=== PATIENT | male | born 1975 | race Caucasian/White ===

== ENCOUNTER → 2024-08-16 | Outpatient (CLI) | payer MEDICAID, SELFPAY ==
--- NOTE | 2024-08-16 16:00 | XR_ITS ---
Examination: Retroperitoneal ultrasound, complete Technique: Multiple high resolution grayscale images of the retroperitoneum obtained, including kidneys and bladder. Exam date and time:August 16, 2024 1603 hours INDICATIONS: Intermittent flank pain 1 year, history kidney stones FINDINGS: Right kidney 10.8 cm renal cortex 1.9 cm Left kidney 11.2 cm cortex 1.5 cm Moderate left hydronephrosis Moderate bilateral renal parenchymal scar formation Contracted urinary bladder, multiple bladder calculi, the largest 9 mm IMPRESSION: Moderate left hydronephrosis, consider CT scan abdomen and pelvis without intravenous contrast follow-up to exclude left ureteral calculi Multiple small bladder calculi
== END | disposition home or self-care (01) ==
PROVIDERS: PCP Physician Assistant; Referring Provider Physician Assistant; Visit Provider Physician Assistant
DX: N13.30 Unspecified hydronephrosis (principal); N21.0 Calculus in bladder
CPT/HCPCS: 76770

== ENCOUNTER → 2024-09-03 | Outpatient (CLI) | payer MEDICAID, SELFPAY ==
--- NOTE | 2024-09-03 15:37 | XR_ITS ---
Examination: Abdomen AP single view Technique: AP portable supine abdomen, single view Exam date and time: September 03, 2024 1341 hours INDICATIONS: History kidney stones left ureteral stent FINDINGS: Left ureteral stent satisfactory position Subtle calcifications adjacent to the upper portion of the stent More pronounced calcifications adjacent to the lower portion of the stent measuring up to 27 mm as well analysis 5 mm 7 mm distal left ureteral calculi IMPRESSION: Calcifications adjacent to the ureteral stent as above
== END | disposition home or self-care (01) ==
LOC: CDIM 15:17
PROVIDERS: PCP Physician Assistant; Referring Provider Physician Assistant; Visit Provider Physician Assistant
DX: N20.2 Calculus of kidney with calculus of ureter (principal)
CPT/HCPCS: 74018

== ENCOUNTER → 2024-09-05 | Outpatient (BNVA) | payer MEDICAID, SELFPAY | END | disposition home or self-care (01) | PROVIDERS: PCP Physician Assistant; Referring Provider Physician Assistant; Visit Provider Urology | DX: N40.1 Benign prostatic hyperplasia with lower urinary tract symptoms (principal); N13.8 Other obstructive and reflux uropathy; N28.89 Other specified disorders of kidney and ureter; N21.0 Calculus in bladder; I10 Essential (primary) hypertension | CPT/HCPCS: 81003; 99212; G0463 ==

== ENCOUNTER 2024-09-10 10:23 | Inpatient (IN) | payer MEDICAID, SELFPAY ==
[2024-09-10 10:27] VITALS: BP 126/88; PULSE 88; RESP 18; TEMP 36.9; O2SAT 100
[2024-09-10 10:33] VITALS: PULSE 88; O2SAT 98; BMI 25.3
[2024-09-10] MEDS: KETOROLAC INJ 30 MG/ML VIAL IM (10:52)
--- NOTE | 2024-09-10 11:14 | PD.EDSOB ---
ED SOB =RME/HPI General Chief Complaint: Abdominal Pain Stated Complaint: FLANK PAIN Time Seen by Provider: 09/10/24 11:09 Source: patient Arrival date/time: 09/10/24 10:23 Mode of arrival: ambulatory Limitations: no limitations RME / HPI RME / HPI Narrative: Patient is a 49-year-old male with a history of hypertension and ADD is here today with left-sided abdominal and flank pain. He has known urethral lithiasis and a urethral stent. He is followed by Dr. Holm with urology. He states he has a upcoming appointment for stent removal and laser surgery for his stones. He developed worsening pain today at 4 AM. He has nausea and vomiting. He has dysuria. Denies any fevers or chills. He has no other acute complaints. Related Data Previous Rx's ?Medication ?Instructions ?Recorded lisinopril 40 mg tablet 40 mg PO QDAY #30 tabs 01/11/22 Allergies Allergy/AdvReac Type Severity Reaction Status Date / Time No Known Allergies Allergy Verified 09/10/24 10:32 Review of Systems Review of Systems Systems Reviewed: All systems reviewed, normal except as documented ED Exam General Limitations: Present no limitations General appearance: Present alert and in distress Head Head exam: Present atraumatic Eye Eye exam: Present normal appearance, PERRL and EOMI ENT ENT exam: Present normal exam, normal oropharynx and mucous membranes moist Neck Neck exam: Present normal inspection, full ROM and trachea midline Chest Chest inspection: Present normal inspection and symmetric chest wall rise Respiratory Respiratory exam: Present normal lung sounds bilaterally Cardiovascular Cardiovascular exam: Present regular rate, normal rhythm and normal heart sounds Abdominal Exam Abdominal exam: Present soft, tenderness, guarding and rebound Extremities Exam Extremities exam: Present normal inspection and full ROM Back Exam Back exam: Present normal inspection, full ROM, CVA tenderness (R) and CVA tenderness (L) Neurological Exam Neurological exam: Present alert and oriented X3 Psychiatric Psychiatric exam: Present normal affect and normal mood Skin Skin exam: Present warm, dry, intact and normal color Course Course Course Narrative: Dr. Phillips with urology was contacted. Will admit to medicine and urology will follow. Quality Measures none Orders Category Date Time Status COVID-19 Screening Questionnaire NOW Care 09/10/24 12:40 Active Decision to Admit X1 Care 09/10/24 12:40 Active Insert IV NOW Care 09/10/24 10:45 Active Consult to Urology Stat Cons 09/10/24 12:[address] abdomen pelvis wo con Stat Exams 09/10/24 11:20 Completed CBC Stat Lab 09/10/24 10:54 Completed Comprehensive Metabolic Panel Stat Lab 09/10/24 10:54 Completed Lipase Stat Lab 09/10/24 10:54 Completed UA, C/S IF [Urinalysis, C/S if Indicated] Stat Lab 09/10/24 10:45 Ordered Ketorolac Inj [Toradol Inj] Med 09/10/24 10:44 Discontinued 30 mg IM X1 ONE Morphine Inj Med 09/10/24 10:45 Discontinued 4 mg IVP X1 ONE Ondansetron Inj [Zofran Inj] Med 09/10/24 10:45 Discontinued 4 mg IVP X1 ONE Sodium Chloride 0.9% 1000 ml [Ns] 1,000 ml Med 09/10/24 10:45 Discontinued IV 999 mls/hr Tamsulosin HCl [Flomax] Med 09/10/24 12:35 Discontinued 0.4 mg PO X1 ONE Vital Signs Vital signs: Vital Signs Temperature 98.4 F 09/10/24 10:27 Pulse Rate 88 09/10/24 10:27 Respiratory Rate 18 09/10/24 10:27 Blood Pressure 126/88 H 09/10/24 10:27 Pulse Oximetry (%) 100 09/10/24 10:27 Oxygen Delivery Method Room Air 09/10/24 10:27 Shortness of Breath / Dyspnea MDM Narrative MDM Narrative:: Patient is a 49-year-old male with a history of hypertension and ADD is here today with left-sided abdominal and flank pain. He has known urethral lithiasis and a urethral stent. He is followed by Dr. Holm with urology. He states he has a upcoming appointment for stent removal and laser surgery for his stones. He developed worsening pain today at 4 AM. He has nausea and vomiting. He has dysuria. Denies any fevers or chills. He has no other acute complaints. On exam, patient is in mild distress. He has abdominal tenderness. No CVA tenderness. Vital signs are stable. He has no leukocytosis or significant anemia. He has a mild CHICHI with a creatinine of 1.6. CT confirms patient has urethral lithiasis. Patient's urologist was contacted. Dr. Thao will follow the patient in the hospital. We will admit to medicine. Patient data External records reviewed:: None Clinical information provided by:: patient Social determinants that could affect healthcare access:: none Patient has the following chronic illnesses:: Nephrolithiasis How is presenting disease/condition affected by chronic disease/condition?: exacerbated by Evaluation data The following diagnostics were reviewed and interpreted by me:: lab results (Mild CHICHI, otherwise unremarkable) and radiology exam(s) (5 mm urethral stone) Lab and/or radiology exams considered but not ordered:: n/a Interpretation Summary: Ureteral lithiasis Medications / Prescriptions Medications or Prescriptions considered but not ordered:: n/a Medication administrations:: Medication Administration History Discontinued Medications Sodium Chloride (Ns) 1,000 mls @ 999 mls/hr IV .Q1H1M ONE Stop: 09/10/24 11:45 Last Admin: 09/10/24 11:33 Dose: 999 mls/hr Documented By: Ketorolac Tromethamine (Ketorolac Inj 30 Mg/Ml Vial) 30 mg IM X1 ONE Stop: 09/10/24 10:45 Last Admin: 09/10/24 10:52 Dose: 30 mg Documented By: Morphine Sulfate (Morphine Sulf Inj 10 Mg/Ml Vial) 4 mg IVP X1 ONE Stop: 09/10/24 10:46 Last Admin: 09/10/24 11:32 Dose: 4 mg Documented By: Ondansetron HCl (Ondansetron Inj 2 Mg/Ml Inj 2 Ml) 4 mg IVP X1 ONE; Protocol Stop: 09/10/24 10:46 Last Admin: 09/10/24 11:32 Dose: 4 mg Documented By: Tamsulosin HCl (Tamsulosin Hcl 0.4 Mg Capsule) 0.4 mg PO X1 ONE Stop: 09/10/24 12:36 See above Consultations Consultation(s) initiated? (list below): Yes Diagnosis Shortness of Breath Differential Diagnosis: other (Abdominal cramping, pyelonephritis, nephrolithiasis) Most likely diagnosis given after review of the tests above:: Ureterolithiasis Admission Indicated Admission indicated?: indicated Admission Request Was there a request for admission?: Yes Admission Attestation Admission request attestation: Discussed case with [] from Hospitalist service regarding admission. Discussed patients ED course, exam findings, labs, and radiology results. The Hospitalist [agrees,declines] to accept the patient for admission. Disposition Plan Disposition Plan: Admit Discharge Plan Plan Patient Disposition: Admit Acute Care w/in Hospital Prescriptions/Referrals Prescriptions/Med Rec: No Action lisinopril 40 mg tablet 40 mg PO QDAY Qty: 30 0RF Referrals: Renetta Redd PA-C [Primary Care Provider] - In 1 week Problem List Clinical Impression: Ureterolithiasis, CHICHI (acute kidney injury) Patient/Caregiver Discharge Instructions Print Language: Latvian Stand Alone Forms: Bel Award Info., Patient Portal Info Letter
--- NOTE | 2024-09-10 11:20 | XR_ITS ---
Examination: CT abdomen and pelvis without contrast. Coronal 3-D reconstructions. Sagittal 2-D reconstructions. Date and time of exam:September 10, 2024 1148 hours Comparison April 18, 2023 INDICATIONS: Left flank pain today, history left ureteral stent CTDI: vol (mGy): 7.70 DLP: (mGycm): 490 Technique: Axial images of the abdomen have been obtained, 3 mm slice thickness Intravenous contrast material has not been administered. Low dose protocols were performed. One or more of the following dose reduction techniques were used; automated exposure control, adjustment of the mA and/or KV according to patient size, use of iterative reconstruction technique. Findings: No focal liver or splenic lesion Absent gallbladder No pancreatic mass 10 mm fat-containing left adrenal nodule Moderate left hydronephrosis, stable compared with April 18, 2023, left ureteral stent satisfactory position 5 mm calculus adjacent to the distal left ureteral stent and multiple bladder calculi, the largest 18 mm No bowel obstruction Normal appendix IMPRESSION: Stable moderate left hydronephrosis Left ureteral stent satisfactory position with 5 mm calculus adjacent to the distal left ureteral stent Multiple bladder calculi
--- NOTE | 2024-09-10 11:26 | PC.NURSE ---
PATIENT ARRIVE ED VIA EMS WITH COMPLAINT OF LEFT SIDE ABDOMINAL PAIN. PATIENT STATES HE HAS SCHEDULED PROCEDURE FOR 09/11/24 FOR KIDNEY STONE 5MM. PATIENT STATES PAIN IS 10/10 ON PAIN SCALE AND HAS INCREASED SINCE THIS MORNING. IV ESTABLISHED. PAIN 10/10 INTERMITTENT. CALL LIGHT WITHIN REACH. WILL CONTINUE TO MONITOR.
[2024-09-10 11:31] LABS: Basophils # (Auto) 0.1 Thou/mm3 (0.0-0.2); Basophils % (Auto) 1 % (0-2.5); Eosinophils # (Auto) 0.5 Thou/mm3 (0.0-0.5); Eosinophils % (Auto) 6 % (0-10); Hematocrit 43.2 % (41.0-53.0); Hemoglobin 15.3 g/dL (13.5-16.0); Immature Granulocytes Auto 0.02 Thou/mm3 (0.00-0.00); Lymphocytes # (Auto) 3.3 Thou/mm3 (1.0-4.8); Lymphocytes % (Auto) 36 % (10-50); Mean Corpuscular HGB Conc 35.4 g/dl (31.0-37.0); Mean Corpuscular Hemoglobin 29.8 pg (25.0-35.0); Mean Corpuscular Volume 84 fL (80-100); Monocytes # (Auto) 1.1 Thou/mm3 (0.0-0.8); Monocytes % (Auto) 12 % (0-12); Neutrophils # (Auto) 4.2 Thou/mm3 (1.8-7.7); Neutrophils % (Auto) 46 % (37-80); Nucleated Red Blood Cell # 0.00 Thou/mm3 (0.00-0.00); Nucleated Red Blood Cell % 0 /100 WBC (0); Platelet Count 271 Thou/mm3 (140-440); RDW Standard Deviation 40.8 fL (35.1-43.9); Red Blood Count 5.13 Miln/mm3 (4.50-5.90); White Blood Count 9.2 Thou/mm3 (3.8-10.6)
[2024-09-10] MEDS: MORPHINE SULF INJ 10 MG/ML VIAL 4 MG IVP (11:32)
[2024-09-10] MEDS: ONDANSETRON INJ 2 MG/ML INJ 2 ML 4 MG IVP (11:32)
[2024-09-10] MEDS: SODIUM CHLORIDE 0.9% 1000 ML 1,000 ML 999 ML IV (11:33)
[2024-09-10 11:45] LABS: Alanine Aminotransferase 23 U/L (10-49); Albumin, Serum 4.1 gm/dL (3.5-5.0); Albumin/Globulin Ratio 1.7 (1.2-2.2); Alkaline Phosphatase 96 U/L (46-116); Anion Gap 10 (7-16); Aspartate Amino Transferase 17 U/L (0-34); BUN/Creatinine Ratio 11 Ratio (12-20); Bilirubin,Total 0.4 mg/dL (0.3-1.2); Blood Urea Nitrogen 17 mg/dL (9-23); Calcium 9.2 mg/dL (8.3-10.6); Calcium (Corrected) 9.2 mg/dL (8.5-10.1); Carbon Dioxide 26.7 mMol/L (20.0-31.0); Chloride 107 mMol/L (98-107); Creatinine (Component) 1.6 mg/dL (0.6-1.3); Estimated Creatinine Clearance 63.8 mL/min (>60); Globulin 2.4 gm/dL (2.3-3.5); Glucose 101 mg/dL (74-106); Lipase 46 U/L (12-53); Osmolality,Calculated 288 (275-295); Potassium 3.5 mMol/L (3.4-5.1); Sodium 144 mMol/L (136-145); Total Protein 6.5 gm/dL (5.7-8.2); eGFR 53 See Note
[2024-09-10 12:13] VITALS: BP 134/97; PULSE 80; RESP 18; TEMP 36.8; O2SAT 98
--- NOTE | 2024-09-10 14:23 | ESHP_ITS ---
<Statement entered by Joe Gallego MD - 09/10/24 18:33> Patient seen and examined at bedside, no acute overnight events. I discussed and supervised with the photography intern physician who took care of this patient. I personally saw and examined the patient. I agree with most of the assessment and plan. Patient with history of multiple renal calculi, recent UTI, and ureteral stent followed by Dr. Rao presents with left flank pain, nausea without vomiting. CT in ED showed mutiple bladder calculi, one ureter calculi. Dr. Rao consulted, will remove stent and possibly perform lithotripsy tomorrow. Patient on IVF, emperic Rocephin ordered, pending urine culture. PRN pain meds on board. Plan of care discussed with attending Dr. Myers. Joe Galelgo MD PGY-2 Documentation for date of: 09/10/24 HPI History of Present Illness History of present illness: Mr. Figueroa is a 49-year-old gentleman with a history of attention deficit disorder, left ureteral stone, and left hydronephrosis, HTN. Patient was initially followed by urologist named Dr. Brooks who had placed ureter stent in 2021 when he had ESWL performed. Due to difficulties with insurance patient was not followed by urology since 2021. Patient seen by urologist, Dr. Thao on 09/05 for evaluation of urinary frequency, urgency, and gross hematuria. Per Dr. Thao's note, pt was planned for a staged procedure with cysto, retrograde ureteroscopy, laser stone fragmentation, and possible removal of the stent. Patient presents to the emergency department with severe left flank pain that radiates to the left groin. States that at 4 AM today he started to experience intermittent sharp and pulsating pain in his left flank area, He states that he intermittently experiences rust colored urine when he plays with his kids or is more active than he normally is. He reports that his last bowel movement was yesterday. ROS * Patient endorses hot flashes, nausea, discomfort with urination, left flank pain, rust colored urine * Patient denies fever, chills, vomiting, constipation, diarrhea, chest pain, shortness of breath ED course Dx * CXR:Left ureteral stent satisfactory position, Subtle calcifications adjacent to the upper portion of the stent, More pronounced calcifications adjacent to the lower portion of the stent measuring up to 27 mm as well analysis 5 mm 7 mm distal left ureteral calculi * CTAP:Stable moderate left hydronephrosis, Left ureteral stent satisfactory position with 5 mm calculus adjacent to the distal left ureteral stent. Multiple bladder calculi Tx * Morphine 4 mg IV push one- time * Ketorolac 30 mg IV one-time * Zofran 4 mg IV push * 1 L normal saline Review of Systems Review of Systems Narrative Review of Systems: As per HPI Past Medical History Surgical History SURGICAL: Positive ESWL and Hx Cholecystectomy OTHER SURGICAL HX: Back surgery Social History SOCIAL: Never smoked History of THC use and methamphetamine use in 2021, patient reports taking medication for ADD Exam Vital Signs Temp Pulse Resp BP Pulse Ox O2 Del Method 98.2 F 80 18 134/97 H 98 Room Air 09/10/24 12:13 09/10/24 12:13 09/10/24 12:13 09/10/24 12:13 09/10/24 12:13 09/10/24 12:13 Narrative Exam GENERAL: uncomfortable and reporting pain , AAO x3, laying on his right side. HEENT: Head AT/ NC. Mucous membranes moist. PERRL. NECK: Supple, no lymphadenopathy, no carotid bruits. CARDIOVASCULAR: RRR. Normal S1/S2, No m/r/g. No pitting edema of bilateral LEs. RESPIRATORY: CTAB. No wheezing, rhonchi, crackles. GASTROINTESTINAL: Abdomen soft, non tender no palpable masses. Bowel sounds present, Left CVA tenderness to palpation MUSCULOSKELETAL:? No cyanosis or edema, no visible joint swelling. NEUROLOGICAL: CN II-XII grossly intact. No focal deficits. Sensation intact, symmetric. PSYCHIATRIC: Awake and alert, not agitated, normal mood and affect. SKIN: No obvious rashes, no jaundice, normal turgor. Results: Labs 09/13/24 04:48 09/13/24 04:48 Labs: Short CBC 09/10/24 Range/Units 10:54 WBC 9.2 (3.8-10.6) Thou/mm3 Hgb 15.3 (13.5-16.0) g/dL Hct 43.2 (41.0-53.0) % Plt Count 271 (140-440) Thou/mm3 BMP 09/10/24 10:54 Sodium 144 Potassium 3.5 Chloride 107 Carbon Dioxide 26.7 BUN 17 Creatinine 1.6 H Glucose 101 Calcium 9.2 Liver Function 09/10/24 Range/Units 10:54 Total Bilirubin 0.4 (0.3-1.2) mg/dL AST 17 (0-34) U/L ALT 23 (10-49) U/L Alkaline Phosphatase 96 (46-116) U/L Albumin 4.1 (3.5-5.0) gm/dL Quality Measures Quality Measures VTE prophylaxis Medications Home Medications and Allergies Allergies Allergy/AdvReac Type Severity Reaction Status Date / Time No Known Allergies Allergy Verified 09/10/24 10:32 Visit Medications Acetaminophen (Acetaminophen 325 Mg Tablet) 650 mg PO Q6H PRN PRN Reason: Fever >101.5 Stop: 10/10/24 13:32 Acetaminophen (Acetaminophen Supp 650 Mg Supp) 650 mg ND Q6H PRN PRN Reason: PAIN SCALE 1-3 (mild Stop: 10/10/24 13:32 Hydrocodone Bitart/Acetaminophen (Hydrocodone/Apap 10/325 Tab) 1 tab PO Q4H PRN PRN Reason: PAIN SCALE 4-6 (Moderate Stop: 09/15/24 13:32 Hydromorphone HCl (Hydromorphone Inj 2 Mg/Ml Vial) 1 mg IVP Q4HR PRN PRN Reason: pain scale 4-10 Stop: 09/15/24 14:19 Sodium Chloride (Ns) 1,000 mls @ 85 mls/hr IV .[id number] ANIKET Stop: 10/10/24 13:44 Ondansetron HCl (Ondansetron Inj 2 Mg/Ml Inj 2 Ml) 4 mg IVP Q6H PRN; Protocol PRN Reason: NAUSEA OR VOMITING Stop: 10/10/24 13:32 Tamsulosin HCl (Tamsulosin Hcl 0.4 Mg Capsule) 0.4 mg PO QDAY [facility] Stop: 10/11/24 08:59 Discontinued Medications Sodium Chloride (Ns) 1,000 mls @ 999 mls/hr IV .Q1H1M ONE Stop: 09/10/24 11:45 Last Admin: 09/10/24 11:33 Dose: 999 mls/hr Ketorolac Tromethamine (Ketorolac Inj 30 Mg/Ml Vial) 30 mg IM X1 ONE Stop: 09/10/24 10:45 Last Admin: 09/10/24 10:52 Dose: 30 mg Morphine Sulfate (Morphine Sulf Inj 10 Mg/Ml Vial) 4 mg IVP X1 ONE Stop: 09/10/24 10:46 Last Admin: 09/10/24 11:32 Dose: 4 mg Morphine Sulfate (Morphine Sulf Inj 10 Mg/Ml Vial) 1 mg IVP Q4H PRN PRN Reason: PAIN SCALE 7-10 (Severe Stop: 09/15/24 13:32 Ondansetron HCl (Ondansetron Inj 2 Mg/Ml Inj 2 Ml) 4 mg IVP X1 ONE; Protocol Stop: 09/10/24 10:46 Last Admin: 09/10/24 11:32 Dose: 4 mg Tamsulosin HCl (Tamsulosin Hcl 0.4 Mg Capsule) 0.4 mg PO X1 ONE Stop: 09/10/24 12:36 Assessment & Plan Plan Mr. Figueroa is a 49-year-old gentleman with a history of attention deficit disorder, left ureteral stone, and left hydronephrosis with L ureter stent 2021, seen by Dr. Thao outpatient on 09/05 with plan for staged cysto, retrograde uretoscopy, laser stone fragmentation, and possible removal of the stent 09/11. currently managing IV fluids and pain managment, NPO at midnight. #Left hydronephrosis #L ureter stent #L uretal stone #hx of ESWL -pt presents with severe L flank pain that radiates to the groin, fth L renal stone. given pt has hx of UTI, urine on admission is notable for RBC and leuk esterase, +, however there is some concern that uretal could be infected, therefore will prophylactically treat for possible infxn with abx. Dx -CTAP: uretal stent noted to be distal to L uretal stent, - KUB: calcifications around L uretal stent - UA: + LEUK ESTERASE + RBC -follow up urine culture Tx - CTX 1 gm - fluids NS 85 ml/hr - Pain mgmt: [place] and dilaudid (avoid nephrotoxic pain medications, d/c ED IV morpheine) #CHICHI Cr: 1.6, appears baseline is about 1.1 Ddx: Consider pre vs intra vs post renal etiologies favor prerenal, given poor PO intake Dx - BUN/Cr ratio: 11 , which is <20, so consider prerenal - Daily CMP Tx - Avoid nephrotoxic medications - Increased maintenance fluids to 90ml/hr LR #electrolyte abnormalities Dx -daily cmp, mg and phos Tx -replete as needed -K>4, Mg >2 Chronic #HTN pt does not endorse taking antihypertensives, BP intermittently elevated, consider elevation in BP given pain 2/2 uretal stone -CTM -manage pain regarding uretal stone appropriately #ADD pt reports ADD with medication management, -hold home amphetimine -utox + amphetemine. Dispo:home pending procedure with tomorrow. Diet: Regular diet, NPO at midnight Bowel Reg: not indicated VTE ppx: held given procedure tomorrow. GI ppx: not indicated Code status: FULL Case discussed with my senior resident Dr. Gallego Case discussed with my attending Dr. Lucia Brenner MD PGY-1 Attending Provider Attestation/Addendum I attest that I was physically present for the evaluation, physical examination, lab and imaging review of the patient with the residents. I discussed the case with the residents and agree with the findings and plans of care as documented above. After examination of the patient and review of the clinical data I feel that this patient needs admission to the hospital for further treatment/evaluation. Sergio Myers MD
[2024-09-10 14:35] VITALS: BP 145/88; PULSE 88; RESP 20; O2SAT 96
[2024-09-10] MEDS: SODIUM CHLORIDE 0.9% 1000 ML 1,000 ML 85 ML IV (15:09)
[2024-09-10] MEDS: TAMSULOSIN HCL 0.4 MG CAPSULE PO (15:09)
[2024-09-10 15:42] VITALS: BMI 25.4
[2024-09-10 16:00] VITALS: BP 140/103; PULSE 75; RESP 16; TEMP 36.3; O2SAT 97
[2024-09-10 19:44] LABS: Collection Type, Urine Clean Catch
[2024-09-10 19:51] LABS: Bilirubin,Urine Negative (Negative); Blood,Urine 3+ (Negative); Budding Yeast,Urine Present; Clarity,Urine Turbid (Clear/Hazy); Color,Urine Lt-Yellow (Lt Yel-Yel); Culture Indicated,Urine Yes; Glucose, Urine 1+ (Negative); Hyaline Casts,Urine < 1 /hpf (0-1); Ketones,Urine Negative (Negative); Leukocyte Esterase,Urine Positive (Negative); Nitrite,Urine Negative (Negative); PH,Urine 6.5 (5.0-7.0); Protein,Urine Trace (Neg - Trace); RBC,Urine 438 /hpf (0-3); Specific Gravity,Urine 1.018 (1.001-1.035); Squamous Epithelial Cell,Urine 1 /hpf (0-5); Urobilinogen,Urine Negative mg/dL (0.0-1.0); WBC,Urine 18 /hpf (0-5)
[2024-09-10] MEDS: cefTRIAXone/D5w 1gm IV premix 1 GM/50 ML BAG IV (19:54)
[2024-09-10 20:00] VITALS: BP 133/89; PULSE 78; RESP 18; TEMP 36.1; O2SAT 96
[2024-09-10 20:32] LABS: Amphetamine/Methamp Scrn,U Positive (Negative); Barbiturate Screen,Urine Negative (Negative); Benzodiazepines Screen,Urine Negative (Negative); Benzoylecgonine Screen, Ur Negative (Negative); Fentanyl Screen,Urine Negative (Negative); Opiate Screen,Urine Positive (Negative); THC Screen,Urine Negative (Negative)
--- NOTE | 2024-09-10 21:33 | PC.NURSE ---
Patient asleep, no s/s distress.
[2024-09-11] VITALS (12 sets, daily range): BP systolic 122–151; BP diastolic 82–105; PULSE 69–77; RESP 12–20; TEMP 36.1–36.4; O2SAT 93–100
[2024-09-11] MEDS: SODIUM CHLORIDE 0.9% 1000 ML 1,000 ML 85 ML IV (05:06)
[2024-09-11 06:12] LABS: Basophils # (Auto) 0.0 Thou/mm3 (0.0-0.2); Basophils % (Auto) 1 % (0-2.5); Eosinophils # (Auto) 0.6 Thou/mm3 (0.0-0.5); Eosinophils % (Auto) 11 % (0-10); Hematocrit 40.6 % (41.0-53.0); Hemoglobin 13.9 g/dL (13.5-16.0); Immature Granulocytes Auto 0.01 Thou/mm3 (0.00-0.00); Lymphocytes # (Auto) 2.2 Thou/mm3 (1.0-4.8); Lymphocytes % (Auto) 37 % (10-50); Mean Corpuscular HGB Conc 34.2 g/dl (31.0-37.0); Mean Corpuscular Hemoglobin 29.7 pg (25.0-35.0); Mean Corpuscular Volume 87 fL (80-100); Monocytes # (Auto) 0.7 Thou/mm3 (0.0-0.8); Monocytes % (Auto) 11 % (0-12); Neutrophils # (Auto) 2.5 Thou/mm3 (1.8-7.7); Neutrophils % (Auto) 41 % (37-80); Nucleated Red Blood Cell # 0.00 Thou/mm3 (0.00-0.00); Nucleated Red Blood Cell % 0 /100 WBC (0); Platelet Count 217 Thou/mm3 (140-440); RDW Standard Deviation 42.1 fL (35.1-43.9); Red Blood Count 4.68 Miln/mm3 (4.50-5.90); White Blood Count 6.0 Thou/mm3 (3.8-10.6)
[2024-09-11 06:24] LABS: INR 1.0 (0.9-1.3); Partial Thromboplastin Time 26.5 Seconds (22.0-36.0); Prothrombin Time 10.9 Seconds (9.0-12.2)
[2024-09-11 06:26] LABS: Alanine Aminotransferase 54 U/L (10-49); Albumin, Serum 3.5 gm/dL (3.5-5.0); Albumin/Globulin Ratio 1.7 (1.2-2.2); Alkaline Phosphatase 88 U/L (46-116); Anion Gap 7 (7-16); Aspartate Amino Transferase 39 U/L (0-34); BUN/Creatinine Ratio 8 Ratio (12-20); Bilirubin,Total 0.4 mg/dL (0.3-1.2); Blood Urea Nitrogen 10 mg/dL (9-23); Calcium 8.1 mg/dL (8.3-10.6); Calcium (Corrected) 8.5 mg/dL (8.5-10.1); Carbon Dioxide 29.9 mMol/L (20.0-31.0); Cardiac Risk Estimate 5.8 RATIO (4.0-6.7); Chloride 106 mMol/L (98-107); Cholesterol 173 mg/dL (132-200); Creatinine (Component) 1.3 mg/dL (0.6-1.3); Estimated Creatinine Clearance 76.3 mL/min (>60); Globulin 2.1 gm/dL (2.3-3.5); Glucose 97 mg/dL (74-106); HDL Cholesterol 30 mg/dL (40-60); LDL Cholesterol,Calculated 70 mg/dL (0-130); Magnesium 1.5 mg/dL (1.6-2.6); Osmolality,Calculated 283 (275-295); Phosphorous 3.1 mg/dL (2.4-5.1); Potassium 3.7 mMol/L (3.4-5.1); Sodium 143 mMol/L (136-145); Total Protein 5.6 gm/dL (5.7-8.2); Triglycerides 364 mg/dL (30-150); eGFR > 60 See Note
--- NOTE | 2024-09-11 07:40 | ESPR_ITS ---
<Statement entered by Joe Gallego MD - 09/11/24 20:28> Patient seen and examined at bedside, no acute overnight events. I discussed and supervised with the security intern physician who took care of this patient. I personally saw and examined the patient. I agree with most of the assessment and plan. Patient received lithotripsy performed by Dr. Rao today, attempted to remove ureter stent, however was unable to due to calcifications. Patient will need to follow up outpatient for next part of procedure. Urine culture pending, continuing rocephin. Plan of care discussed with attending Dr. Myers. Joe Gallego MD PGY-2 Documentation for date of: 09/11/24 Subjective Subjective Interval history: No acute events overnight, patient is comfortable with adequate pain control Plan for procedure with urologist this afternoon Patient n.p.o. Exam Vital Signs Temp Pulse Resp BP Pulse Ox O2 Del Method 97.0 F 73 16 136/93 H 96 Room Air 09/11/24 04:00 09/11/24 04:00 09/11/24 04:00 09/11/24 04:00 09/11/24 04:00 09/11/24 04:00 Narrative Exam GENERAL: Resting comfortably in bed, AAO x3, laying on his right side. HEENT: Head AT/ NC. Mucous membranes moist. PERRL. NECK: Supple, no lymphadenopathy, no carotid bruits. CARDIOVASCULAR: RRR. Normal S1/S2, No m/r/g. No pitting edema of bilateral LEs. RESPIRATORY: CTAB. No wheezing, rhonchi, crackles. GASTROINTESTINAL: Abdomen soft, non tender no palpable masses. Bowel sounds present, mild left CVA tenderness to palpation MUSCULOSKELETAL:? No cyanosis or edema, no visible joint swelling. NEUROLOGICAL: CN II-XII grossly intact. No focal deficits. Sensation intact, symmetric. PSYCHIATRIC: Awake and alert, not agitated, normal mood and affect. SKIN: No obvious rashes, no jaundice, normal turgor. Objective Labs 09/13/24 04:48 09/13/24 04:48 Labs: Laboratory Results - last 24 hr 09/10/24 09/10/24 09/10/24 10:54 19:28 19:30 WBC 9.2 RBC 5.13 Hgb 15.3 Hct 43.2 MCV 84 MCH 29.8 MCHC 35.4 RDW Std Deviation 40.8 Plt Count 271 Neut % (Auto) 46 Lymph % (Auto) 36 Bryan % (Auto) 12 Eos % (Auto) 6 Baso % (Auto) 1 Neut # (Auto) 4.2 Lymph # (Auto) 3.3 Bryan # (Auto) 1.1 H Eos # (Auto) 0.5 Baso # (Auto) 0.1 Immature Gran # (Auto) 0.02 H Absolute Nucleated RBC 0.00 Immature Gran % 0 Nucleated RBC % 0 PT INR APTT Sodium 144 Potassium 3.5 Chloride 107 Carbon Dioxide 26.7 Anion Gap 10 BUN 17 Creatinine 1.6 H Estim Creat Clear Calc 63.8 eGFR 53 L BUN/Creatinine Ratio 11 L Glucose 101 Calculated Osmolality 288 Calcium 9.2 Corrected Calcium 9.2 Phosphorus Magnesium Total Bilirubin 0.4 AST 17 ALT 23 Alkaline Phosphatase 96 Total Protein 6.5 Albumin 4.1 Globulin 2.4 Albumin/Globulin Ratio 1.7 Triglycerides Cholesterol LDL Cholesterol, Calc HDL Cholesterol Cholesterol/HDL Ratio Lipase 46 Ur Collection Type Clean Catch Urine Color Lt-Yellow Urine Clarity Turbid A Urine pH 6.5 Ur Specific Hernandez 1.018 Urine Protein Trace Urine Glucose (UA) 1+ A Urine Ketones Negative Urine Blood 3+ A Urine Nitrite Negative Urine Bilirubin Negative Urine Urobilinogen (Auto) Negative Ur Leukocyte Esterase Positive Urine RBC 438 H Urine WBC 18 H Ur Squamous Epith Cells 1 Urine Bacteria None Hyaline Casts < 1 Urine Yeast (Budding) Present A Ur Culture Indicated? Yes Urine Opiates Screen Positive A Urine Fentanyl Screen Negative Ur Barbiturates Screen Negative U Amphetamin/Meth Scrn Positive A U Benzodiazepines Scrn Negative U Cocaine Metab Screen Negative U Marijuana (THC) Screen Negative 09/11/24 04:58 WBC 6.0 RBC 4.68 Hgb 13.9 Hct 40.6 L MCV 87 MCH 29.7 MCHC 34.2 RDW Std Deviation 42.1 Plt Count 217 D Neut % (Auto) 41 Lymph % (Auto) 37 Bryan % (Auto) 11 Eos % (Auto) 11 H Baso % (Auto) 1 Neut # (Auto) 2.5 Lymph # (Auto) 2.2 Bryan # (Auto) 0.7 Eos # (Auto) 0.6 H Baso # (Auto) 0.0 Immature Gran # (Auto) 0.01 H Absolute Nucleated RBC 0.00 Immature Gran % 0 Nucleated RBC % 0 PT 10.9 INR 1.0 APTT 26.5 Sodium 143 Potassium 3.7 Chloride 106 Carbon Dioxide 29.9 Anion Gap 7 BUN 10 Creatinine 1.3 Estim Creat Clear Calc 76.3 eGFR > 60 BUN/Creatinine Ratio 8 L Glucose 97 Calculated Osmolality 283 Calcium 8.1 L Corrected Calcium 8.5 Phosphorus 3.1 Magnesium 1.5 L Total Bilirubin 0.4 AST 39 H ALT 54 H Alkaline Phosphatase 88 Total Protein 5.6 L Albumin 3.5 D Globulin 2.1 L Albumin/Globulin Ratio 1.7 Triglycerides 364 H Cholesterol 173 LDL Cholesterol, Calc 70 HDL Cholesterol 30 L Cholesterol/HDL Ratio 5.8 Lipase Ur Collection Type Urine Color Urine Clarity Urine pH Ur Specific Hernandez Urine Protein Urine Glucose (UA) Urine Ketones Urine Blood Urine Nitrite Urine Bilirubin Urine Urobilinogen (Auto) Ur Leukocyte Esterase Urine RBC Urine WBC Ur Squamous Epith Cells Urine Bacteria Hyaline Casts Urine Yeast (Budding) Ur Culture Indicated? Urine Opiates Screen Urine Fentanyl Screen Ur Barbiturates Screen U Amphetamin/Meth Scrn U Benzodiazepines Scrn U Cocaine Metab Screen U Marijuana (THC) Screen Quality Measures Quality Measures VTE prophylaxis Assessment & Plan Assessment Current Active Medications: Generic Name Dose Route Start Last Admin Trade Name Freq PRN Reason Stop Dose Admin Acetaminophen 650 mg 09/10/24 13:33 Acetaminophen 325 Mg Tablet PO 10/10/24 13:32 Q6H PRN Fever >101.5 Acetaminophen 650 mg 09/10/24 13:33 Acetaminophen Supp 650 Mg Supp AZ 10/10/24 13:32 Q6H PRN PAIN SCALE 1-3 (mild Hydrocodone Bitart/Acetaminophen 1 tab 09/10/24 13:33 09/10/24 18:05 Hydrocodone/Apap 10/325 Tab PO 09/15/24 13:32 1 tab Q4H PRN Administration PAIN SCALE 4-6 (Moderate Hydromorphone HCl 1 mg 09/10/24 14:20 Hydromorphone Inj 2 Mg/Ml Vial IVP 09/15/24 14:19 Q4HR PRN PAIN SCALE 7-10 (Severe Sodium Chloride 1,000 mls @ 85 mls/hr 09/10/24 13:45 09/11/24 05:06 Ns IV 10/10/24 13:44 85 mls/hr .[id number] ANIKET Administration Ceftriaxone Sodium/Dextrose 1 gm in 50 mls @ 100 mls/hr 09/10/24 20:00 09/10/24 19:54 Rocephin/D5w 1gm Iv Premix IV 09/17/24 19:59 100 mls/hr QDAY@1400 ANIKET Administration Ondansetron HCl 4 mg 09/10/24 13:33 Ondansetron Inj 2 Mg/Ml Inj 2 Ml IVP 10/10/24 13:32 Q6H PRN NAUSEA OR VOMITING Protocol Tamsulosin HCl 0.4 mg 09/11/24 09:00 Tamsulosin Hcl 0.4 Mg Capsule PO 10/11/24 08:59 QDAY ANIKET Plan Mr. Figueroa is a 49-year-old gentleman with a history of attention deficit disorder, left ureteral stone, and left hydronephrosis with L ureter stent 2021, seen by Dr. Thao outpatient on 09/05 with s/p part 1 of staged cysto, retrograde uretoscopy, laser stone fragmentation, left ureteral stent not rib removed, per op note Dr. Eduardo plans to remove stent in 2 to 3 weeks in office Thornton catheter 5 days given stricture, #Left hydronephrosis #L ureter stent #L uretal stone #hx of ESWL -pt presents with severe L flank pain that radiates to the groin, fth L renal stone. given pt has hx of UTI, urine on admission is notable for RBC and leuk esterase, +, however there is some concern that uretal could be infected, therefore will prophylactically treat for possible infxn with abx. Dx -CTAP: uretal stent noted to be distal to L uretal stent, - KUB: calcifications around L uretal stent - UA: + LEUK ESTERASE + RBC -follow up urine culture Tx - CTX 1 gm - fluids NS 85 ml/hr -Status post procedure with urology, plan for staged procedure in [address] Thao. Left ureteral stent will be exchanged in office, plan to continue Thornton catheter for 5 days given stricture of the fossa navicularis - Pain mgmt per surgeon, jadon fofana dilaudid #CHICHI- resolving Cr: 1.6 on admission, appears baseline is about 1.1, now 1.3 Ddx: Consider pre vs intra vs post renal etiologies favor prerenal, given poor PO intake and resolution with fluids Dx - BUN/Cr ratio: 11 , which is <20, so consider prerenal - Daily CMP Tx - Avoid nephrotoxic medications - encourage PO intake #electrolyte abnormalities Dx -daily cmp, mg and phos Tx -replete as needed -K>4, Mg >2 Chronic #HTN pt does not endorse taking antihypertensives, BP intermittently elevated, consider elevation in BP given pain 2/2 uretal stone -CTM -manage pain regarding uretal stone appropriately #ADD pt reports ADD with medication management, -hold home amphetimine -utox + amphetemine. #High Triglycerides ASCVD score does not indicate statin is needed (risk 4.3%) - consider outpt follow up for elevated triglycerides -encourage healthy diet Dispo:s/p procedure with dr. Eduardo, plan for outpatient stent removal, thornton 5 days for stricture. Diet: Regular diet, Bowel Reg: senna prn, given opioid pain regimen VTE ppx: Resume heparin tomorrow GI ppx: not indicated Code status: FULL Case discussed with my senior resident Dr. Gallego Case discussed with my attending Dr. Lucia Brenner MD PGY-1 Attending Provider Attestation/Addendum I attest that I was physically present for the evaluation, physical examination, lab and imaging review of the patient with the residents. I discussed the case with the residents and agree with the findings and plans of care as documented above. Sergio Myers MD
[2024-09-11] MEDS: TAMSULOSIN HCL 0.4 MG CAPSULE PO (08:42)
[2024-09-11] MEDS: HYDROmorphone INJ 2 MG/ML VIAL 1 MG IVP ×2 (08:48→23:31)
--- NOTE | 2024-09-11 10:08 | PC.SS ---
Patient Ace Figueroa is a 49 Year old male admitted for PRE REG. SS met with patient at bedside to discuss discharge plan and verify demographic information. Patient reports he lives at home with his life partner, Vida Young. Patient reports his mother, Andreina Stover is his surrogate decision maker, [phone]. Patient reports he is able to complete all ADL's independently. Patient does not utilize any source of DME to assist with ambulation. Pharmacy of choice is [facility]. PCP is Renetta Arellano. At time of discharge patient will return back home, family will provide transportation. Next of kin: mother, Andreina Stover [phone]. Discharge plan: Home
[2024-09-11] MEDS: POTASSIUM CHL 10 mEq IVPB 10 MEQ/100 ML BAG 100 MEQ IV ×3 (10:10→12:14)
[2024-09-11] MEDS: Magnesium Sulfate 4 GM Ivpb 4 GM/50 ML BAG IV (10:10)
--- NOTE | 2024-09-11 11:15 | XR_ITS ---
Examination: Retrograde pyelogram, left with without KUB Fluoroscopy 7 spot fluoroscopic abdomen films INDICATIONS: History flank pain, moderate left hydronephrosis left ureteral stent in satisfactory position with 5 mm calculus adjacent to the distal left ureter on CT stone study September 10, 2024,. Date and time: September 11, 2024 1417 hours TECHNIQUE AND FINDINGS: 7 spot fluoroscopic films of the abdomen Minimal opacification of the left calyces Fluoroscopy 108 seconds radiation dose 28.75 mg IMPRESSION: Retrograde pyelogram as above
[2024-09-11] MEDS: CALCIUM GLUC/NS 1000MG IVPB 1,000 MG/50 ML BAG 50 MG IV (12:23)
--- NOTE | 2024-09-11 14:39 | PC.SS ---
SS follow up note; Urine cultures pending, pending Dr. Thao consult. Patient will discharge home when medically cleared.
--- NOTE | 2024-09-11 16:55 | SUR.PHASEI ---
[id number] Patient arrived to recovery resting comfortably in [facility], on oxygen 6L via oxy mask with an oral airway in place, breathing unlabored, vital signs stable, urinary catheter 20F in place with leg secure; draining to gravity, report received from Dr. Ayon and Lindsey BEVERLY
--- NOTE | 2024-09-11 17:07 | ESOP_ITS ---
Date of Procedure 09/11/24 Pre Op Diagnosis Calcified stent left ureter BPH with urinary obstruction, encrustation of the distal end of the stent, bladder stone, of stricture of fossa navicularis Post Op Diagnosis Same Procedure Cystoscopic examination urethral dilation laser stone fragmentation of bladder stones left retrograde pyelogram left ureteroscopy laser stone fragmentation left ureter ,placement of left ureteral stent insertion of Trujillo catheter Findings Stricture of fossa navicularis, obstructive prostate gland, bladder stone, calcified stent left ureter stone in the left ureter Procedure Description This is a 49-year-old gentleman who was seen by me in urology office. This patient has been seen by another urologist before who placed a left ureteral stent in 2021 and the stent was not removed now he has calcified stent and bladder stones from the stent and bladder stone he was having recurrent urinary tract infection at the nominal pain he had a CAT scan of the abdomen done this revealed multiple stones in the bladder calcified left ureteral stent he was recommended recommended cystoscopic examination laser stone fragmentation of the bladder stones, left ureteroscopy laser stone fragmentation of left ureteral stones retrograde pyelogram removal of the left ureteral stent and placement of another ureteral stent. Procedure procedure and complications were discussed with the patient in great detail I had also explained to the patient if I am unable to remove his calcified stent since it has been there for the last 3 years I may have to insert another stent alongside the previous stent if I am unable to remove his previous stent and I also explained to him there is a possibility he may have to have a placement of the percutaneous nephrostomy and informed consent was obtained Patient was brought to the operating room in a satisfactory condition after appropriate premedication was put on the operating table in a supine position he was appropriately identified by surgeon and operating room staff site scope and indications of the procedure were reconfirmed with the patient. Next general anesthesia was given uneventfully patient was positioned in a dorsal lithotomy position parts were prepped and draped in the usual sterile fashion 2% lidocaine was instilled into the urethra 21 Sandoval cystoscope was used to do the cystourethroscopy. At this time patient received perioperative antibiotics and 20 mg of Lasix IV was given for prevention of pyelocalyceal reflux infectious complications and for diuresis. cystoscopic examination revealed that he has a stricture of fossa navicularis. Dilation with male urethral sounds up to 28 Ukrainian was carried out next I was able to insert the scope into the bladder , other than stricture of fossa navicularis he had no urethral stricture identified. Examination of the prostatic urethra revealed bilobar prostatic hypertrophy. Inside of the bladder and all the quadrant was carried out he had multiple bladder stones and the distal end of the stent was calcified with the largest stone encasing it. The stent was calcified up to the left ureteral orifice. Next I used a 1000 ?m laser fiber to break the stones and remove the encrusted casing of the distal end of the ureteral stent. The stone in the bladder were very hard I used laser laser fiber to break the bladder stone and for remaining stone I had to use ,stone crushing forceps to crush some of the stones. Next with the [employer] evacuator I remove the stones. Next I focused my attention to the left ureteral orifice and left ureteral stone and calcified stent left ureter I passed a open-ended Pollick catheter into the left ureteral orifice it will not go beyond the distal third of the ureter even the contrast medium will not go beyond the obstructive stone. I did a retrograde pyelogram there was a obstruction . After manipulation of the open-ended Pollick , I was able to pass a safety wire into the upper pole calyx. I tried to advance the open-ended Pollick catheter I was unable to advance it. I used semirigid ureteroscope there was encrustation of the ureter and there was a obstruction in the distal ureter with a very large stone embedded into the tissue. I was able to break the stone with the 200 ?m laser fiber in the distal ureter to make enough space for me to put another stent. Next I passed the ureteroscope along with the stent it was calcified all the way to the proximal ureter it was not possible to remove the stent as it could have caused damage to the ureter. At this time I remove the ureteroscope over the safety wire I was able to place another 5 Ukrainian 28 cm ureteral stent proximal end curled into the upper pole calyx distal end in the bladder. The whole procedure was performed under fluoroscopic examination stones from the bladder were removed with the [employer] evacuator next instrument was withdrawn gently #20 Ukrainian Trujillo catheter was inserted into the bladder balloon was inflated with 10 cc of water patient after having tolerated the procedure well was sent to recovery room in a satisfactory condition he will be transferred to the floor. Patient is going to need second stage procedure hopefully by this time his ureter will be passively dilated and I may be pass the ureteroscope and remove the calcification around the whole ureter and replace it with another stent which will be there for 2 to 3 weeks then I will remove the ureteral stent in the office in the meantime patient needs to continue with the Trujillo catheter for 5 days because of the stricture of the fossa navicularis Anesthesia GETA Pathology / specimen Other (Bladder stone) Estimated Blood Loss 5 Condition Stable Disposition PACU Surgeon Dixon Thao MD Surgical Staff Operation Date: 09/11/24 11:45 Case Staff Anesthesiologist: Linwood Khan Anesthesiologist: Star Ayon
--- NOTE | 2024-09-11 17:57 | SUR.PHASEI ---
1746 Report given to Debra BEVERLY, patient meets discharge criteria from recovery, awake and alert, breathing unlabored, vital signs stable, denies pain, eating ice chips; denies nausea, urinary catheter in place with leg secure; draining to gravity 1757 Patient transported via gurney to room 359 without incident, patient awaiting for patient in his room, DIRECTOR OF [facility] CARE [facility]OS[facility] promptly in patients room and assisted this automotive service writer with transferring patinet from rney to bed, patient resting comfortably in bed with call light in reach when this automotive service writer left patients room
--- NOTE | 2024-09-11 18:44 | ESCONSULT_ITS ---
RE: ALBERTO LICONA : 1975 DATE OF CONSULTATION: 09/10/2024 CHIEF COMPLAINT: 1. Abdominal pain. 2. History of recurrent UTI. 3. Calcified stent in the left ureter by another urologist in 2021. The patient has no fever, chills, gross hematuria. He had nausea, vomiting, and dysuria. In the past he has history of recurrent UTI. REVIEW OF SYSTEMS: All systems were reviewed, normal except as documented. PHYSICAL EXAMINATION: General: Condition is satisfactory. Orientation x3. HEENT: Normocephalic and atraumatic. Eyes, no anemia or jaundice. Neck: Supple. Trachea is central. Thyroid is not enlarged. Extremities: Reveal no edema, cyanosis or clubbing. Vital Signs: Stable. They are in HPI, in EMR. Chest: Symmetrical. Heart: Regular rate and rhythm. Abdomen: Obese. No masses. Liver, spleen, kidney not palpable. No CVA tenderness. COMORBID CONDITIONS: 1. Hypertension. 2. ADD. He had a CAT scan of the abdomen and pelvis done. This revealed stone in the bladder calcified stent left ureter. Vital signs are stable. PLAN: 1. Cystoscopy, laser stone fragmentation of the bladder stones. 2. Ureteroscopy, laser stone fragmentation of the ureteral stone. 3. Possible removal of the left ureteral stent and possible placement of another ureteral stent. 4. Possibility of placement of percutaneous nephrostomy if I am unable to place the stent. All above issues were discussed with the patient in great detail. Questions were answered to his satisfaction. He verbalized understanding. DT: 17:27:59 TT: 18:43:00 Ref: [id number] - TID: [id number]
[2024-09-12] VITALS (7 sets, daily range): BP systolic 136–151; BP diastolic 87–99; PULSE 73–100; RESP 17–20; TEMP 36.1–36.3; O2SAT 94–98
[2024-09-12] MEDS: HYDROmorphone INJ 2 MG/ML VIAL 1 MG IVP ×2 (05:08→08:59)
[2024-09-12] MEDS: SODIUM CHLORIDE 0.9% 1000 ML 1,000 ML 85 ML IV (05:23)
--- NOTE | 2024-09-12 05:45 | PC.NURSE ---
Notified Dr. Flor and Dr. Pearson regarding patient's urninary cath. Night nurse notified MD that the urine is not flowing correctly into the bag and there is also some blood in the urine. Also, notified MD, that there is also some blood in the outside of the urinary cath. Night nurse asked MD if they could come out and come see patient.
[2024-09-12 06:37] LABS: Basophils # (Auto) 0.0 Thou/mm3 (0.0-0.2); Basophils % (Auto) 0 % (0-2.5); Eosinophils # (Auto) 0.0 Thou/mm3 (0.0-0.5); Eosinophils % (Auto) 0 % (0-10); Hematocrit 46.0 % (41.0-53.0); Hemoglobin 15.8 g/dL (13.5-16.0); Immature Granulocytes Auto 0.09 Thou/mm3 (0.00-0.00); Lymphocytes # (Auto) 0.9 Thou/mm3 (1.0-4.8); Lymphocytes % (Auto) 5 % (10-50); Mean Corpuscular HGB Conc 34.3 g/dl (31.0-37.0); Mean Corpuscular Hemoglobin 29.8 pg (25.0-35.0); Mean Corpuscular Volume 87 fL (80-100); Monocytes # (Auto) 0.4 Thou/mm3 (0.0-0.8); Monocytes % (Auto) 2 % (0-12); Neutrophils # (Auto) 17.1 Thou/mm3 (1.8-7.7); Neutrophils % (Auto) 93 % (37-80); Nucleated Red Blood Cell # 0.00 Thou/mm3 (0.00-0.00); Nucleated Red Blood Cell % 0 /100 WBC (0); Platelet Count 287 Thou/mm3 (140-440); RDW Standard Deviation 40.9 fL (35.1-43.9); Red Blood Count 5.30 Miln/mm3 (4.50-5.90); White Blood Count 18.5 Thou/mm3 (3.8-10.6)
[2024-09-12 06:56] LABS: Alanine Aminotransferase 50 U/L (10-49); Albumin, Serum 4.1 gm/dL (3.5-5.0); Albumin/Globulin Ratio 1.6 (1.2-2.2); Alkaline Phosphatase 96 U/L (46-116); Anion Gap 9 (7-16); Aspartate Amino Transferase 26 U/L (0-34); BUN/Creatinine Ratio 9 Ratio (12-20); Bilirubin,Total 0.5 mg/dL (0.3-1.2); Blood Urea Nitrogen 13 mg/dL (9-23); Calcium 9.0 mg/dL (8.3-10.6); Calcium (Corrected) 9.0 mg/dL (8.5-10.1); Carbon Dioxide 28.0 mMol/L (20.0-31.0); Chloride 104 mMol/L (98-107); Creatinine (Component) 1.4 mg/dL (0.6-1.3); Estimated Creatinine Clearance 70.8 mL/min (>60); Globulin 2.5 gm/dL (2.3-3.5); Glucose 164 mg/dL (74-106); Magnesium 1.5 mg/dL (1.6-2.6); Osmolality,Calculated 285 (275-295); Phosphorous 2.3 mg/dL (2.4-5.1); Potassium 4.2 mMol/L (3.4-5.1); Sodium 141 mMol/L (136-145); Total Protein 6.6 gm/dL (5.7-8.2); eGFR > 60 See Note
--- NOTE | 2024-09-12 07:56 | ESPR_ITS ---
<Statement entered by Toni Brown MD - 09/12/24 18:45> Patient was seen and examined at bedside. Patient's Thornton catheter was draining urine indicating mild straw-colored. Urologist recommended to keep Thornton for total 7 days. Stone was broken down with lithotripsy. New stent was placed. Old stent will be replaced as outpatient. Will likely discharge the patient tomorrow. Urine cultures are coming negative however wound cover patient with Levaquin due to complicated cystitis and stone. I discussed and supervised with the hospital internship physician who took care of this patient. I personally saw and examined the patient. I agree with most of the assessment and plan. Disclaimer: Despite multiple revisions, due to the dictation software being used, the document bellow may not be free of grammatical errors including phonetic/typographic errors. However, this does not deter from our commitment to providing health care in the patient's best interest in mind. Plan of care discussed with attending Physician Dr. Melly Brown MD PGY-3 Documentation for date of: 09/12/24 Subjective Subjective Interval history: No acute events overnight, pain is well controlled. restarted diet after urology procedure, tolerating well thornton in place draining claudette aid colored urine Exam Vital Signs Temp Pulse Resp BP Pulse Ox O2 Del Method O2 Flow Rate 97.3 F 90 17 136/90 H 94 L Room Air 3 09/12/24 04:00 09/12/24 04:00 09/12/24 04:00 09/12/24 04:00 09/12/24 04:00 09/12/24 04:00 09/11/24 17:10 24 hr vital signs have been reviewed. afebrile, satting well on RA BP stable Narrative Exam GENERAL: no acute distress, AAO x3, comfortably laying in bed HEENT: Head AT/ NC. Mucous membranes moist. PERRL. NECK: Supple, no lymphadenopathy, no carotid bruits. CARDIOVASCULAR: RRR. Normal S1/S2, No m/r/g. No pitting edema of bilateral LEs. RESPIRATORY: CTAB. No wheezing, rhonchi, crackles. GASTROINTESTINAL: Abdomen soft, non tender no palpable masses. Bowel sounds present : thornton in place, with claudette aid colored urine MUSCULOSKELETAL:? No cyanosis or edema, no visible joint swelling. NEUROLOGICAL: CN II-XII grossly intact. No focal deficits. Sensation intact, symmetric.pt seen ambulating in room PSYCHIATRIC: Awake and alert, not agitated, normal mood and affect. SKIN: No obvious rashes, no jaundice, normal turgor. Objective Labs 09/13/24 04:48 09/13/24 04:48 Labs: Laboratory Results - last 24 hr 09/12/24 05:53 WBC 18.5 H D RBC 5.30 Hgb 15.8 Hct 46.0 MCV 87 MCH 29.8 MCHC 34.3 RDW Std Deviation 40.9 Plt Count 287 D Neut % (Auto) 93 H Lymph % (Auto) 5 L [place] % (Auto) 2 Eos % (Auto) 0 Baso % (Auto) 0 Neut # (Auto) 17.1 H Lymph # (Auto) 0.9 L [place] # (Auto) 0.4 Eos # (Auto) 0.0 Baso # (Auto) 0.0 Immature Gran # (Auto) 0.09 H Absolute Nucleated RBC 0.00 Immature Gran % 1 H Nucleated RBC % 0 Sodium 141 Potassium 4.2 D Chloride 104 Carbon Dioxide 28.0 Anion Gap 9 BUN 13 Creatinine 1.4 H Estim Creat Clear Calc 70.8 eGFR > 60 BUN/Creatinine Ratio 9 L Glucose 164 H D Calculated Osmolality 285 Calcium 9.0 Corrected Calcium 9.0 Phosphorus 2.3 L Magnesium 1.5 L Total Bilirubin 0.5 AST 26 ALT 50 H Alkaline Phosphatase 96 Total Protein 6.6 Albumin 4.1 D Globulin 2.5 Albumin/Globulin Ratio 1.6 Quality Measures Quality Measures VTE prophylaxis Assessment & Plan Assessment Current Active Medications: Generic Name Dose Route Start Last Admin Trade Name Chanoq PRN Reason Stop Dose Admin Acetaminophen 650 mg 09/10/24 13:33 Acetaminophen 325 Mg Tablet PO 10/10/24 13:32 Q6H PRN Fever >101.5 Acetaminophen 650 mg 09/10/24 13:33 Acetaminophen Supp 650 Mg Supp CO 10/10/24 13:32 Q6H PRN PAIN SCALE 1-3 (mild Hydrocodone Bitart/Acetaminophen 1 tab 09/10/24 13:33 09/10/24 18:05 Hydrocodone/Apap 10/325 Tab PO 09/15/24 13:32 1 tab Q4H PRN Administration PAIN SCALE 4-6 (Moderate Hydromorphone HCl 1 mg 09/10/24 14:20 09/12/24 05:08 Hydromorphone Inj 2 Mg/Ml Vial IVP 09/15/24 14:19 1 mg Q4HR PRN Administration PAIN SCALE 7-10 (Severe Sodium Chloride 1,000 mls @ 85 mls/hr 09/10/24 13:45 09/12/24 05:23 Ns IV 10/10/24 13:44 85 mls/hr .[id number] ANIKET Administration Ceftriaxone Sodium/Dextrose 1 gm in 50 mls @ 100 mls/hr 09/10/24 20:00 09/11/24 16:33 Rocephin/D5w 1gm Iv Premix IV 09/17/24 19:59 Not Given QDAY@1400 ANIKET Lisinopril 40 mg 09/12/24 09:00 Lisinopril 20 Mg Tablet PO 10/12/24 08:59 QDAY ANIKET Ondansetron HCl 4 mg 09/10/24 13:33 Ondansetron Inj 2 Mg/Ml Inj 2 Ml IVP 10/10/24 13:32 Q6H PRN NAUSEA OR VOMITING Protocol Tamsulosin HCl 0.4 mg 09/11/24 09:00 09/11/24 08:42 Tamsulosin Hcl 0.4 Mg Capsule PO 10/11/24 08:59 0.4 mg QDAY ANIKET Administration Plan Mr. Figueroa is a 49-year-old gentleman with a history of attention deficit disorder, left ureteral stone, and left hydronephrosis with L ureter stent 2021, seen by Dr. Thao outpatient on 09/05 with s/p part 1 of staged cysto, retrograde uretoscopy, laser stone fragmentation, left ureteral stent not be removed, per op note Dr. Eduardo plans to remove stent in 2 to 3 weeks in office Thornton catheter 7 days given stricture #Leukocytosis 2/2 #Left hydronephrosis #L ureter stent #L uretal stone #hx of ESWL -pt presents with severe L flank pain that radiates to the groin, fth L renal stone. given pt has hx of UTI, urine on admission is notable for RBC and leuk esterase, +, however there is some concern that uretal could be infected, therefore will prophylactically treat for possible infxn with abx. Dx -CTAP: uretal stent noted to be distal to L uretal stent, - KUB: calcifications around L uretal stent - UA: + LEUK ESTERASE + RBC -UCx negative Tx - CTX 1 gm, plan to discharge with 7 days of Levoflox 750 mg - fluids LR 125ml/hr -Status post procedure with urology, plan for staged procedure in [address] Thao. Left ureteral stent will be exchanged in office, plan to continue Thornton catheter for 7 days given stricture of the fossa navicularis - Pain mgmt orals: oxycodone 5 mg q6h prn, NORCO q6h #CHICHI- resolving Cr: 1.6 on admission, appears baseline is about 1.1, now 1.3 Ddx: Consider pre vs intra vs post renal etiologies favor prerenal, given poor PO intake and resolution with fluids Dx - BUN/Cr ratio: 11 , which is <20, so consider prerenal - Daily CMP Tx - Avoid nephrotoxic medications - encourage PO intake #electrolyte abnormalities Dx -daily cmp, mg and phos Tx -replete as needed -K>4, Mg >2 Chronic #HTN pt does not endorse taking antihypertensives, BP intermittently elevated, consider elevation in BP given pain 2/2 uretal stone -CTM -manage pain 2/2 urology procedure #ADD pt reports ADD with medication management, -hold home amphetimine -utox + amphetemine. #High Triglycerides ASCVD score does not indicate statin is needed (risk 4.3%) - consider outpt follow up for elevated triglycerides -encourage healthy diet Dispo:s/p procedure with dr. Eduardo, plan for outpatient stent removal, thornton 7 days for stricture, pt education on thornton removal Diet: Regular diet, Bowel Reg: senna prn, given opioid pain regimen VTE ppx: not indicated, pt ambulatory GI ppx: not indicated Code status: FULL Case discussed with my senior resident Dr. Gallego Case discussed with my attending Dr. Lucia Brenner MD PGY-1 Attending Provider Attestation/Addendum I, Prema Pickard DO, attest that I was physically present for the [place] portions of the service and evaluated the patient with the resident and I reviewed and discussed the case with the resident and agree with the resident's findings and plans of care as documented above Patient seen and eval this a.m. Patient states he has minimal pain at this time to site besides discomfort of the Thornton catheter. Urine is a copper red color. Patient is able to ambulate without issue otherwise. Case discussed with urology who states that the patient had an old calcified ureteral stent that had been blocking the left ureter requiring laser to break up stones and passed with guidewire to place new stent. Patient also had a very large stone in bladder. Procedure was quite difficult. Patient will need a second procedure in the near future for removal of stent. Patient also found to have a stricture and will need to keep his Thornton catheter in for 7 days. Nursing at bedside can teach patient how to remove Thornton catheter at home. Patient's WBCs are 18.5 today and likely reactive. He is otherwise afebrile. Will continue with Flomax at this time and antibiotics for prophylactic coverage. Will continue with IV fluids and monitor overnight. Anticipate discharge within the next 24 hours if patient remains afebrile.
--- NOTE | 2024-09-12 07:57 | PD.RESDS ---
Planned Discharge Date 09/12/24 DS: Providers Provider Date of admission: 09/10/24 13:33 Primary care physician: Renetta Redd PA-C Admitting Provider: Sergio Myers MD Attending Provider on Admission: Sergio Myers MD Consults: 09/10/24 12:37 Consult to Urology Stat Comment: Urethral lithiasis Consulting Provider: Dixon Thao Attending Provider on DC: RESIDENT Fidelia Discharging Provider: RESIDENT Fidelia Hospital Course Hospital Course Hospital course: No acute events overnight, patient is comfortable with adequate pain control Plan for procedure with urologist this afternoon Patient n.p.o. Time Spent with Patient Time attestation: Total time spent providing and/or coordinating discharge services: Exam Vital Signs Temp Pulse Resp BP Pulse Ox O2 Del Method O2 Flow Rate 97.3 F 90 17 136/90 H 94 L Room Air 3 09/12/24 04:00 09/12/24 04:00 09/12/24 04:00 09/12/24 04:00 09/12/24 04:00 09/12/24 04:00 09/11/24 17:10 Discharge Plan Prescriptions/Referrals Prescriptions/Med Rec: No Action lisinopril 40 mg tablet 40 mg PO QDAY Qty: 30 0RF Referrals: Renetta Redd PA-C [Primary Care Provider] - Patient/Caregiver Discharge Instructions Print Language: Slovak
[2024-09-12] MEDS: TAMSULOSIN HCL 0.4 MG CAPSULE PO (08:30)
[2024-09-12] MEDS: NAPH,KPH MBDB 1 PACKET (1.5 GM) PO (08:30)
[2024-09-12] MEDS: RINGERS LACTATED 1000 ML 500 ML 125 ML IV (08:31)
[2024-09-12] MEDS: Magnesium Sulfate 4 GM Ivpb 4 GM/50 ML BAG IV (08:32)
[2024-09-12] MEDS: cefTRIAXone/D5w 1gm IV premix 1 GM/50 ML BAG IV (10:47)
[2024-09-13] VITALS: BP 152/93; PULSE 76; RESP 17; TEMP 36.7; O2SAT 100
[2024-09-13 04:00] VITALS: BP 144/93; PULSE 64; RESP 18; TEMP 36.4; O2SAT 98
[2024-09-13] MEDS: oxyCODONE HCL 5 MG IR TAB PO (04:21)
[2024-09-13 06:32] LABS: Basophils # (Auto) 0.0 Thou/mm3 (0.0-0.2); Basophils % (Auto) 0 % (0-2.5); Eosinophils # (Auto) 0.1 Thou/mm3 (0.0-0.5); Eosinophils % (Auto) 0 % (0-10); Hematocrit 44.0 % (41.0-53.0); Hemoglobin 15.3 g/dL (13.5-16.0); Immature Granulocytes Auto 0.08 Thou/mm3 (0.00-0.00); Lymphocytes # (Auto) 2.4 Thou/mm3 (1.0-4.8); Lymphocytes % (Auto) 13 % (10-50); Mean Corpuscular HGB Conc 34.8 g/dl (31.0-37.0); Mean Corpuscular Hemoglobin 30.0 pg (25.0-35.0); Mean Corpuscular Volume 86 fL (80-100); Monocytes # (Auto) 1.3 Thou/mm3 (0.0-0.8); Monocytes % (Auto) 7 % (0-12); Neutrophils # (Auto) 14.6 Thou/mm3 (1.8-7.7); Neutrophils % (Auto) 79 % (37-80); Nucleated Red Blood Cell # 0.00 Thou/mm3 (0.00-0.00); Nucleated Red Blood Cell % 0 /100 WBC (0); Platelet Count 244 Thou/mm3 (140-440); RDW Standard Deviation 42.0 fL (35.1-43.9); Red Blood Count 5.10 Miln/mm3 (4.50-5.90); White Blood Count 18.5 Thou/mm3 (3.8-10.6)
[2024-09-13 07:01] LABS: Alanine Aminotransferase 48 U/L (10-49); Albumin, Serum 4.4 gm/dL (3.5-5.0); Albumin/Globulin Ratio 2.2 (1.2-2.2); Alkaline Phosphatase 96 U/L (46-116); Anion Gap 6 (7-16); Aspartate Amino Transferase 30 U/L (0-34); BUN/Creatinine Ratio 12 Ratio (12-20); Bilirubin,Total 0.3 mg/dL (0.3-1.2); Blood Urea Nitrogen 15 mg/dL (9-23); Calcium 9.3 mg/dL (8.3-10.6); Calcium (Corrected) 9.3 mg/dL (8.5-10.1); Carbon Dioxide 30.8 mMol/L (20.0-31.0); Chloride 106 mMol/L (98-107); Creatinine (Component) 1.3 mg/dL (0.6-1.3); Estimated Creatinine Clearance 76.3 mL/min (>60); Globulin 2.0 gm/dL (2.3-3.5); Glucose 116 mg/dL (74-106); Magnesium 2.2 mg/dL (1.6-2.6); Osmolality,Calculated 286 (275-295); Phosphorous 3.0 mg/dL (2.4-5.1); Potassium 3.9 mMol/L (3.4-5.1); Sodium 143 mMol/L (136-145); Total Protein 6.4 gm/dL (5.7-8.2); eGFR > 60 See Note
[2024-09-13 07:42] VITALS: BP 152/104; BP 153/103; PULSE 69; RESP 18; TEMP 36.4; O2SAT 98
--- NOTE | 2024-09-13 07:47 | PD.RESPRO ---
Documentation for date of: 09/13/24 Exam Vital Signs Temp Pulse Resp BP Pulse Ox O2 Del Method O2 Flow Rate 97.5 F 69 18 153/103 H 98 Room Air 3 09/13/24 07:42 09/13/24 07:42 09/13/24 07:42 09/13/24 07:42 09/13/24 07:42 09/13/24 07:42 09/11/24 17:10 Objective Labs 09/13/24 04:48 09/13/24 04:48 Labs: Laboratory Results - last 24 hr 09/13/24 04:48 WBC 18.5 H RBC 5.10 Hgb 15.3 Hct 44.0 MCV 86 MCH 30.0 MCHC 34.8 RDW Std Deviation 42.0 Plt Count 244 D Neut % (Auto) 79 Lymph % (Auto) 13 [place] % (Auto) 7 Eos % (Auto) 0 Baso % (Auto) 0 Neut # (Auto) 14.6 H Lymph # (Auto) 2.4 [place] # (Auto) 1.3 H Eos # (Auto) 0.1 Baso # (Auto) 0.0 Immature Gran # (Auto) 0.08 H Absolute Nucleated RBC 0.00 Immature Gran % 0 Nucleated RBC % 0 Sodium 143 Potassium 3.9 Chloride 106 Carbon Dioxide 30.8 Anion Gap 6 L BUN 15 Creatinine 1.3 Estim Creat Clear Calc 76.3 eGFR > 60 BUN/Creatinine Ratio 12 Glucose 116 H Calculated Osmolality 286 Calcium 9.3 Corrected Calcium 9.3 Phosphorus 3.0 Magnesium 2.2 Total Bilirubin 0.3 AST 30 ALT 48 Alkaline Phosphatase 96 Total Protein 6.4 Albumin 4.4 Globulin 2.0 L Albumin/Globulin Ratio 2.2 Quality Measures Quality Measures VTE prophylaxis Assessment & Plan Assessment Current Active Medications: Generic Name Dose Route Start Last Admin Trade Name Freq PRN Reason Stop Dose Admin Acetaminophen 650 mg 09/10/24 13:33 Acetaminophen 325 Mg Tablet PO 10/10/24 13:32 Q6H PRN Fever >101.5 Acetaminophen 650 mg 09/10/24 13:33 Acetaminophen Supp 650 Mg Supp SD 10/10/24 13:32 Q6H PRN PAIN SCALE 1-3 (mild Hydrocodone Bitart/Acetaminophen 1 tab 09/10/24 13:33 09/13/24 00:23 Hydrocodone/Apap 10/325 Tab PO 09/15/24 13:32 1 tab Q4H PRN Administration PAIN SCALE 4-6 (Moderate Hydromorphone HCl 2 mg 09/13/24 07:47 Hydromorphone Hcl 2 Mg Tablet PO 09/13/24 07:48 X1 ONE Ceftriaxone Sodium/Dextrose 1 gm in 50 mls @ 100 mls/hr 09/12/24 09:00 09/12/24 10:47 Rocephin/D5w 1gm Iv Premix IV 09/19/24 08:59 100 mls/hr DAILY ANIKET Administration Levofloxacin 750 mg 09/13/24 09:00 Levofloxacin 250 Mg Tablet PO 09/20/24 08:59 QDAY ANIKET Lisinopril 40 mg 09/12/24 09:00 09/12/24 08:30 Lisinopril 20 Mg Tablet PO 10/12/24 08:59 40 mg QDAY ANIKET Administration Ondansetron HCl 4 mg 09/10/24 13:33 Ondansetron Inj 2 Mg/Ml Inj 2 Ml IVP 10/10/24 13:32 Q6H PRN NAUSEA OR VOMITING Protocol Oxycodone HCl 5 mg 09/12/24 10:45 09/13/24 04:21 Oxycodone Hcl 5 Mg Ir Tab PO 09/17/24 10:38 5 mg Q6HR PRN Administration PAIN SCALE 4-10(Mod-Sev Tamsulosin HCl 0.4 mg 09/11/24 09:00 09/12/24 08:30 Tamsulosin Hcl 0.4 Mg Capsule PO 10/11/24 08:59 0.4 mg QDAY ANIKET Administration
[2024-09-13] MEDS: HYDROMORPHONE HCL 2 MG TABLET PO (07:57)
[2024-09-13 08:37] VITALS: BP 153/103; PULSE 69
[2024-09-13] MEDS: cefTRIAXone/D5w 1gm IV premix 1 GM/50 ML BAG IV (08:37)
[2024-09-13] MEDS: LEVOFLOXACIN 250 MG TABLET 750 MG PO (08:37)
[2024-09-13] MEDS: TAMSULOSIN HCL 0.4 MG CAPSULE PO (08:38)
--- NOTE | 2024-09-13 11:56 | ESDS_ITS ---
<Statement entered by Prema Pickard DO - 09/14/24 08:53> I, Prema Pickard DO, attest that I was physically present for the [place]mlinson portions of the service and evaluated the patient with the resident and I reviewed and discussed the case with the resident and agree with the resident's findings and plans of care as documented above <Statement entered by Toni Brown MD - 09/13/24 16:39> I discussed and supervised with the advisory internship physician who took care of this patient. I personally saw and examined the patient. I agree with most of the assessment and plan. Disclaimer: Despite multiple revisions, due to the dictation software being used, the document bellow may not be free of grammatical errors including phonetic/typographic errors. However, this does not deter from our commitment to providing health care in the patient's best interest in mind. Plan of care discussed with attending Physician Dr. Melly Brown MD PGY-3 Planned Discharge Date 09/13/24 DS: Providers Provider Date of admission: 09/10/24 13:33 Primary care physician: Renetta Redd PA-C Admitting Provider: Sergio Myers MD Attending Provider on Admission: Prema Pickard DO Consults: 09/10/24 12:37 Consult to Urology Stat Comment: Urethral lithiasis Consulting Provider: Dixon Thao Attending Provider on DC: Prema Pickard DO Discharging Provider: Prema Pickard DO DS: Diagnosis Problem List Completed Was Problem List Reviewed/Reconciled?: Yes Hospital Course Hospital Course Hospital course: Hospital Course Mr. Figueroa is a 49-year-old man with a history of attention deficit disorder, left ureteral stone, and left hydronephrosis with L ureter stent 2021, seen by Dr. Thao outpatient on 09/05 with s/p part 1 of staged cysto, retrograde uretoscopy, laser stone fragmentation, left ureteral stent not removed. He has Thornton catheter in place due to stricture in the penile urethra found on surgery. Patient will continue with Thornton for 7 days prior to removing. Patient was noted to have leukocytosis following procedure, but has been afebrile. Suspect reactive leukocytosis. Patient will be discharged on antibiotics prophylactically for UTI given presence of renal stones and ureteral stones. While inpatient we managed his pain with IV Dilaudid, Tylenol, and oxycodone. Patient was transition from any IV medications to p.o. medications for pain management. Patient stable and medically cleared for discharge Diagnoses #Left hydronephrosis #Nephrolithiasis #L ureter stent #L uretal stone post lithotripsy #urethral stricture #Leukocytosis, likely reactive #hx of ESWL -HTN ? ADD - Elevated triglycerides Discharge instructions Take levaquin 750 once a day for 6 days to complete course of UTI Take Tyelnol for pain as needed YOu are being sent with 10 tabs of [place] 5, take as needed for pain, max 4 pills in one day Take all home meds as prescribed F/U with PCP and urologist as outpatient within a week Patient will leave with thornton cathetar needs to keep in for 5 more days In case of emergency call 911 or come back to the ED Case discussed with my senior resident Dr. Brown Case discussed with my attending Dr. Melly Brenner MD PGY-1 Status at Discharge Functional status at discharge: independent ambulation Overall status at discharge: patient is progressing back to baseline Time Spent with Patient Time attestation: Total time spent providing and/or coordinating discharge services: Time spent: Greater than 30 minutes Exam Vital Signs Temp Pulse Resp BP Pulse Ox O2 Del Method O2 Flow Rate 97.5 F 69 18 153/103 H 98 Room Air 3 09/13/24 07:42 09/13/24 08:37 09/13/24 07:42 09/13/24 08:37 09/13/24 07:42 09/13/24 07:42 09/11/24 17:10 Narrative Exam GENERAL: Resting comfortably in bed (patient had just received some pain medication), AAO x3, laying on his right side. HEENT: Head AT/ NC. Mucous membranes moist. PERRL. NECK: Supple, no lymphadenopathy, no carotid bruits. CARDIOVASCULAR: RRR. Normal S1/S2, No m/r/g. No pitting edema of bilateral LEs. RESPIRATORY: CTAB. No wheezing, rhonchi, crackles. GASTROINTESTINAL: Abdomen soft, non tender no palpable masses. Bowel sounds present, mild : Thornton in place draining Librado-Aid colored urine MUSCULOSKELETAL:? No cyanosis or edema, no visible joint swelling. NEUROLOGICAL: CN II-XII grossly intact. No focal deficits. Sensation intact, symmetric. PSYCHIATRIC: Awake and alert, not agitated, normal mood and affect. SKIN: No obvious rashes, no jaundice, normal turgor. Discharge Plan Plan Patient Disposition: HOME (Self Care) Care Plan Goals: Take levaquin 750 once a day for 6 days to complete course of UTI Take Tyelnol for pain as needed You are being sent with 10 tabs of [place] 5, take as needed for pain, max 4 pills in one day Take all home meds as prescribed Follow up with Primary doctor and urologist as outpatient within a week Patient will leave with thornton catheter needs to keep in for 5 more days In case of emergency call 911 or come back to the ED Prescriptions/Referrals Prescriptions/Med Rec: New tamsulosin 0.4 mg Capsule 0.4 mg PO QDAY Qty: 90 0RF levofloxacin 750 mg tablet 750 mg PO QDAY 6 Days Qty: 6 0RF hydrocodone-acetaminophen 5-325 mg tablet 1 tab PO Q6H MDD 4 PRN (Reason: pain) Qty: 10 0RF Continued lisinopril 40 mg tablet 40 mg PO QDAY Qty: 30 0RF Referrals: Renetta Redd PA-C [Primary Care Provider] - Dixon Thao MD [Physician] - Patient/Caregiver Discharge Instructions Education Materials: Medicine for Pain, Discharge Instructions Caring ..., ED Thornton Catheter, Care Print Language: Luxembourgish Stand Alone Forms: Bel Award Info., Patient Portal Info Letter Discharge Order Discharge Orders: Discharge (Routine); Ordered 09/13/24 Ordered By: Joe Gallego Quality Discharge Quality Measures VTE prophylaxis
[2024-09-13 12:00] VITALS: BP 139/95; BP 145/93; PULSE 77; RESP 18; TEMP 36.2; O2SAT 98
[2024-09-19 23:34] LABS: Stone Analysis Source URINARY BLADDER
[2024-09-20 06:26] LABS: Stone Analysis Weight 3.065 g
== END 2024-09-13 13:38 | disposition home or self-care (01) | DRG 465 ==
LOC: SERX 12:56 → SERHOLD 13:59 → S3NX 15:38
PROVIDERS: Nurse Practitioner Primary Care; Urology; Admitting Provider Student in an Organized Health Care Education/Training Program; Emergency Provider Emergency Medicine; PCP Physician Assistant; Visit Provider Internal Medicine
PROC: 0TJB8ZZ Inspection of Bladder, Via Natural or Artificial Opening Endoscopic (ICD-10-PCS; CPT 52000; principal; 2024-09-11 11:30)
DX: N13.2 Hydronephrosis with renal and ureteral calculous obstruction (principal); Z87.442 Personal history of urinary calculi; I10 Essential (primary) hypertension; Z90.49 Acquired absence of other specified parts of digestive tract; Z87.440 Personal history of urinary (tract) infections; N17.9 Acute kidney failure, unspecified; N13.8 Other obstructive and reflux uropathy; N40.1 Benign prostatic hyperplasia with lower urinary tract symptoms; N21.0 Calculus in bladder; E78.1 Pure hyperglyceridemia; N35.919 Unspecified urethral stricture, male, unspecified site
CPT/HCPCS: 36415; 74176; 74420; 80053; 80061; 80307; 81001; 82365; 83690; 83735; 84100; 85025; 85610; 85730; 87086; 96361; 96372; 96374; A4217; A4649; C1769; C1876; C1889; C1894; J0131; J0613; J0696; J1100; J1171; J1580; J1885; J1938; J2250; J2270; J2405; J2704; J3010; J3475; J3480; J3490; J7030; J7120; A9270

== ENCOUNTER 2024-09-13 23:57 | Emergency (ER) | payer MEDICAID, SELFPAY ==
[2024-09-13 23:58] VITALS: BMI 25.3
[2024-09-14 00:16] VITALS: BP 149/97; PULSE 111; RESP 18; TEMP 36.1; O2SAT 97; BMI 25.3
--- NOTE | 2024-09-14 01:07 | XR_ITS ---
Examination: CT abdomen and pelvis without contrast. Coronal 3-D reconstructions. Sagittal 2-D reconstructions. Date and time of exam:September 14, 2024 at 0209 hours INDICATIONS: Severe flank pain after stent placement today, history left hydronephrosis left ureteral stent placement with 5 mm calculus adjacent to the distal left ureteral stent on CT stone study September 10, 2024 CTDI: vol (mGy): 8.35 DLP: (mGycm): 531 Technique: Axial images of the abdomen have been obtained, 3 mm slice thickness Intravenous contrast material has not been administered. Low dose protocols were performed. One or more of the following dose reduction techniques were used; automated exposure control, adjustment of the mA and/or KV according to patient size, use of iterative reconstruction technique. Findings: No pancreatic or adrenal mass Significant improvement in hydronephrosis on the left compared to the September 10, 2024 study Left ureteral stent in satisfactory position with multiple left ureteral calculi adjacent to the distal portion of the stent Urinary [place] catheter and contracted urinary bladder, subcentimeter bladder calculi Normal appendix 10 mm left adrenal nodule Moderate disc narrowing L5-S1 Trace free fluid in the pelvis Impression : Current left ureteral stent satisfactory position with no significant current hydronephrosis 5 mm, 5 mm calculi adjacent to the lower portion of the left ureteral stent. Subcentimeter bladder calculi
--- NOTE | 2024-09-14 03:11 | PRELIM_ITS ---
CT scan of the abdomen and pelvis without intravenous contrast (axial sections with sagittal and coronal reformats). 3D reconstructed images were also provided. September 14, 2024 0209 hours Clinical History: Monitor ureteral stent position Comparison: CT abdomen and pelvis study dated September 10, 2024. Findings: There is interval placement of a left nephroureteral stent with its proximal end in the upper pole calyx and the distal end in the urinary bladder. Again noted is an old left nephroureteral stent catheter with its proximal end in the lower pole calyx and the distal end in the urinary bladder, stable in position. Tiny air loculi are seen in the upper pole calyx of the left kidney, likely due to recent intervention. There is interval decrease of left hydronephrosis. Minimal left periureteric/perinephric fat stranding is seen. No evidence of perinephric fluid collection. Again noted are calcifications/calculi in the left ureter, without significant interval change. No evidence of renal calculus. The gallbladder is surgically absent. Again noted is a 1 cm nodule (HU 5) in the left adrenal gland, without significant interval change and may represent an adenoma. The liver, pancreas, spleen, right kidney and right adrenal are unremarkable on this noncontrast study. No evidence of bowel obstruction. The appendix is within normal limits. There are multiple colonic diverticula without evidence of diverticulitis. No evidence of abdominal aortic aneurysm. There are subcentimeter mesenteric and retroperitoneal lymph nodes. A [place] catheter is seen in the empty urinary bladder, limiting the evaluation. A few tiny calculi are seen in the urinary bladder. There is interval removal of large calcific encrustations around the old left nephroureteral stent in the bladder. Trace free fluid is seen in the pelvis, of indeterminate etiology. There is no free air. Small bilateral inguinal hernias are seen containing fat without incarceration. Degenerative changes are identified in the spine. Bibasilar streaky atelectasis is present. Other findings are grossly stable since prior examination. Please note that evaluation of soft tissue/vascular structures and bowel loops is limited due to absence of IV and oral contrast. Impression: 1. Interval placement of a left nephroureteral stent with its proximal end in the upper pole calyx and the distal end in the urinary bladder and decreased hydronephrosis. 2. Calculi in the left ureter, without significant interval change. 3. Urinary bladder calculi as described. 4. Interval removal of large calcific encrustations around the old left nephroureteral stent in the bladder. 5. Other findings as described above. Suggest clinical correlation and follow up accordingly. Report Electronically Signed By: George Antunez 09/14/2024 3:10:30 AM [EST]
--- NOTE | 2024-09-14 05:57 | EDRME_ITS ---
Rapid Medical Screening Exam RME Arrival date/time: 09/13/24 23:57 49M presents to ED because his ureteral stent went into his [place] cath after he tried to have a BM. Patient was discharged for this yesterday. Attempted contact with Dr. Thao overnight, but he did not pickle cutter. Patient wants to wait in ED rather than come back in AM. Chief Complaint: General Adult/Misc Complain Time Seen by Provider: 09/14/24 00:52 Vital signs: Vital Signs Temperature 97 F 09/14/24 00:16 Pulse Rate 111 H 09/14/24 00:16 Respiratory Rate 18 09/14/24 00:16 Blood Pressure 149/97 H 09/14/24 00:16 Pulse Oximetry (%) 97 09/14/24 00:16 Oxygen Delivery Method Room Air 09/14/24 00:16
[2024-09-14 06:00] VITALS: BP 135/93; PULSE 83; RESP 18; TEMP 36.6; O2SAT 96
--- NOTE | 2024-09-14 06:54 | EDNOTE_ITS ---
ED Recheck Abnl Lab Rx-RME/HPI General Chief Complaint: General Adult/Misc Complain Stated Complaint: LANGSTON CATH AND STENT PROBLEM Time Seen by Provider: 09/14/24 00:52 Arrival date/time: 09/13/24 23:57 Limitations: no limitations RME / HPI RME / HPI narrative: 09/13/24 23:57 49M presents to ED because his ureteral stent went into his Langston cath after he tried to have a BM. Patient was discharged for this yesterday. Attempted contact with Dr. Thao overnight, but he did not fruit or nut picker. Patient wants to wait in ED rather than come back in AM. DR. HERNANDEZ MAIN ED EVALUATION: 49 year old male with past medical history attention-deficit disorder, left ureteral stone, and left hydronephrosis status-post left ureteral stent placement in 2021 underwent part 1 of staged cystoscopy, retrograde ureteroscopy, and laser stone fragmentation on 09/05, with the stent intentionally left in place. He was discharged from the hospital yesterday but returns today after noticing that the ureteral stent has migrated into his Langston catheter while straining for a bowel movement. He reports severe low-back and abdominal pain and visible urine in the Langston bag. He denies fever, chills, nausea, vomiting, hematuria, or dysuria. No other new symptoms, medications, or recent trauma reported. Related Data Previous Rx's ?Medication ?Instructions ?Recorded lisinopril 40 mg tablet 40 mg PO QDAY #30 tabs 01/11 levofloxacin 750 mg tablet 750 mg PO QDAY 6 days #6 ta bs 09/12/24 tamsulosin 0.4 mg capsule 0.4 mg PO QDAY #90 caps 08/27 09/20 hydrocodone 5 mg-acetaminophen 325 1 tab PO Q6H PRN pa in #10 tabs 09/13/24 mg tablet Allergies Allergy/AdvReac Type Severity Reaction Status Date / Time No Known Allergies Allergy Verified 09/14/24 00:03 Review of Systems Review of Systems Systems Reviewed: All systems reviewed, normal except as documented Past Medical History Past Medical History CARDIAC: Positive Hypertension GASTROINTESTINAL: Positive Gastrointestinal Disorders and Gall Bladder Disease MUSCULOSKELETAL: Positive Musculoskeletal Disorders (right hand fx) PSYCHO/SOCIAL: Positive Attention Deficit Hyperactivity Disorder OTHER HISTORY: Positive Chicken Pox Family History FAMILY HISTORY: Positive Family Cardiac Disorders (chf-dad), Family Cancer (melanoma) and Family Surgery Social History SMOKING STATUS: Current some day smoker SUBSTANCE USE: marijuana and amphetamines Past Medical History Comments PMH COMMENT: Attention-deficit disorder, left ureteral stone, and left hydronephrosis status-post left ureteral stent placement in 2021 underwent part 1 of staged cystoscopy, retrograde ureteroscopy, and laser stone fragmentation on 09/05, with the stent intentionally left in place. ED Exam General Limitations: Present no limitations General appearance: Present alert and in no apparent distress Head Head exam: Present atraumatic, normocephalic and normal inspection Eye Eye exam: Present normal appearance, PERRL and EOMI ENT ENT exam: Present normal exam, normal oropharynx and mucous membranes moist Neck Neck exam: Present normal inspection, full ROM and trachea midline Chest Chest inspection: Present normal inspection and symmetric chest wall rise Respiratory Respiratory exam: Present normal lung sounds bilaterally Cardiovascular Cardiovascular exam: Present regular rate, normal rhythm and normal heart sounds Abdominal Exam Abdominal exam: Present soft and normal bowel sounds Extremities Exam Extremities exam: Present normal inspection and full ROM Back Exam Back exam: Present normal inspection and full ROM Neurological Exam Neurological exam: Present alert, oriented X3 and CN II-XII intact Psychiatric Psychiatric exam: Present normal affect and normal mood Skin Skin exam: Present warm, dry, intact and normal color Course Quality Measures none Orders Category Date Time Status CT abdomen pelvis wo con Stat Exams 09/14/24 01:07 Completed oxyCODONE/APAP 5/325 [Percocet 5/325] Med 09/14/24 01:07 Discontinued 1 tab PO X1 ONE Vital Signs Vital signs: Vital Signs Temperature 97 F 09/14/24 00:16 Pulse Rate 111 H 09/14/24 00:16 Respiratory Rate 18 09/14/24 00:16 Blood Pressure 149/97 H 09/14/24 00:16 Pulse Oximetry (%) 97 09/14/24 00:16 Oxygen Delivery Method Room Air 09/14/24 00:16 Recheck / Abnormal Lab / Rx MDM Narrative MDM Narrative:: Karla Montgomery am scribing for and in the presence of Dr. Hernandez. Patient data External records reviewed:: [facility] previous records Clinical information provided by:: patient Social determinants that could affect healthcare access:: none Patient has the following chronic illnesses:: Attention-deficit disorder, left ureteral stone, and left hydronephrosis status- post left ureteral stent placement in 2021 underwent part 1 of staged cystoscopy, retrograde ureteroscopy, and laser stone fragmentation on 09/05, with the stent intentionally left in place. How is presenting disease/condition affected by chronic disease/condition?: caused by Evaluation data The following diagnostics were reviewed and interpreted by me:: lab results and radiology exam(s) Lab and/or radiology exams considered but not ordered:: none Interpretation Summary: Procedure(s): CT abdomen pelvis wo con Accession Number(s): [id number] cc: Renetta Redd; Walter Tucker MD; David Brooke PA-C~ Examination: CT abdomen and pelvis without contrast. Coronal 3-D reconstructions. Sagittal 2-D reconstructions. Date and time of exam:September 14, 2024 at 0209 hours INDICATIONS: Severe flank pain after stent placement today, history left hydronephrosis left ureteral stent placement with 5 mm calculus adjacent to the distal left ureteral stent on CT stone study September 10, 2024 CTDI: vol (mGy): 8.35 DLP: (mGycm): 531 Technique: Axial images of the abdomen have been obtained, 3 mm slice thickness Intravenous contrast material has not been administered. Low dose protocols were performed. One or more of the following dose reduction techniques were used; automated exposure control, adjustment of the mA and/or KV according to patient size, use of iterative reconstruction technique. Findings: No pancreatic or adrenal mass Significant improvement in hydronephrosis on the left compared to the September 10, 2024 study Left ureteral stent in satisfactory position with multiple left ureteral calculi adjacent to the distal portion of the stent Urinary Langston catheter and contracted urinary bladder, subcentimeter bladder calculi Normal appendix 10 mm left adrenal nodule Moderate disc narrowing L5-S1 Trace free fluid in the pelvis Impression : Current left ureteral stent satisfactory position with no significant current hydronephrosis 5 mm, 5 mm calculi adjacent to the lower portion of the left ureteral stent. Subcentimeter bladder calculi Dictated By: Walter Tucker MD Medications / Prescriptions Medications or Prescriptions considered but not ordered:: none Medication administrations:: Medication Administration History Discontinued Medications Oxycodone/Acetaminophen (Oxycodone/Apap 5/325 Tablet) 1 tab PO X1 ONE Stop: 09/14/24 01:08 Last Admin: 09/14/24 01:59 Dose: 1 tab Documented By: JENNI see above Consultations Consultation(s) initiated? (list below): No Diagnosis Recheck Differential Diagnosis: other (Dislodged ureteral stent with ureteral irritation, acute urinary tract infection including pyelonephritis, and residual ureteral stone fragment obstruction.) Most likely diagnosis given after review of the tests above:: Ureterolithiasis Displacement of indwelling ureteral stent Admission Indicated Admission indicated?: not indicated Admission Request Was there a request for admission?: No Disposition Plan Disposition Plan: Discharge Discharge Attestation Discharge Attestation: The patient and all family members were given an opportunity to ask questions and understood the discharge instructions. Discharge instructions specifically effects, indications for sooner follow up or return to the emergency department, and the expected course of current diagnosis. Patient condition: Stable Discharge Plan Plan Patient Disposition: HOME (Self Care) Patient condition on transfer: Stable Prescriptions/Referrals Prescriptions/Med Rec: No Action lisinopril 40 mg tablet 40 mg PO QDAY Qty: 30 0RF tamsulosin 0.4 mg Capsule 0.4 mg PO QDAY Qty: 90 0RF levofloxacin 750 mg tablet 750 mg PO QDAY 6 Days Qty: 6 0RF hydrocodone-acetaminophen 5-325 mg tablet 1 tab PO Q6H MDD 4 PRN (Reason: pain) Qty: 10 0RF Referrals: Renetta Redd PA-C [Primary Care Provider] - In 1 week Dixon Thao MD [Physician] - 09/16/24 Problem List Clinical Impression: Ureterolithiasis, Displacement of indwelling ureteral stent Patient/Caregiver Discharge Instructions Additional Instructions: Please follow-up with Dr. Fairchild within 2-3 days. Return to the Emergency Department as needed. Print Language: Pakistani Stand Alone Forms: [employer] Award Info., Work/School Release, Patient Portal Info Letter
== END 2024-09-14 07:00 | disposition home or self-care (01) ==
PROVIDERS: Emergency Provider Emergency Medicine; PCP Physician Assistant
DX: N13.2 Hydronephrosis with renal and ureteral calculous obstruction (principal); T83.122A Displacement of indwelling ureteral stent, initial encounter; Y84.8 Other medical procedures as the cause of abnormal reaction of the patient, or of later complication, without mention of misadventure at the time of the procedure; N21.0 Calculus in bladder
CPT/HCPCS: 74176; 99283; A9270

== ENCOUNTER 2024-09-24 14:39 | Inpatient (IN) | payer MEDICAID, SELFPAY ==
[2024-09-24 14:39] VITALS: BMI 25.3
--- NOTE | 2024-09-24 14:55 | XR_ITS ---
Examination: CT abdomen and pelvis without contrast. Coronal 3-D reconstructions. Sagittal 2-D reconstructions. Date and time of exam:September 24, 2024, 1654 hours INDICATIONS: Lower abdominal pain beginning today, history left ureteral stent with ureteral calculi on CT study September 14, 2024 CTDI: vol (mGy): 6.95 DLP: (mGycm): 429 Technique: Axial images of the abdomen have been obtained, 3 mm slice thickness Intravenous contrast material has not been administered. Low dose protocols were performed. One or more of the following dose reduction techniques were used; automated exposure control, adjustment of the mA and/or KV according to patient size, use of iterative reconstruction technique. Findings: No focal liver or splenic lesions No gallstones No pancreatic mass. Minimal nodular thickening left adrenal gland Left ureteral stent satisfactory position with no significant hydronephrosis 6 mm 5 mm ureteral calculi adjacent to the distal portion of the stent Urinary [place] catheter satisfactorily positioned Moderate disc narrowing L5-S1 IMPRESSION: Left ureteral stent satisfactory position with no significant hydronephrosis
[2024-09-24 15:00] VITALS: BP 128/94; PULSE 106; RESP 18; TEMP 36.9; O2SAT 96
--- NOTE | 2024-09-24 15:00 | PD.EDRME ---
Rapid Medical Screening Exam RME Arrival date/time: 09/24/24 14:39 49 yr old male presents with concerns for possible malfunction of catheter and stent issue Chief Complaint: General Adult/Misc Complain
[2024-09-24 15:15] LABS: Basophils # (Auto) 0.1 Thou/mm3 (0.0-0.2); Basophils % (Auto) 1 % (0-2.5); Eosinophils # (Auto) 0.6 Thou/mm3 (0.0-0.5); Eosinophils % (Auto) 6 % (0-10); Hematocrit 45.3 % (41.0-53.0); Hemoglobin 15.2 g/dL (13.5-16.0); Immature Granulocytes Auto 0.02 Thou/mm3 (0.00-0.00); Lymphocytes # (Auto) 2.7 Thou/mm3 (1.0-4.8); Lymphocytes % (Auto) 26 % (10-50); Mean Corpuscular HGB Conc 33.6 g/dl (31.0-37.0); Mean Corpuscular Hemoglobin 29.7 pg (25.0-35.0); Mean Corpuscular Volume 89 fL (80-100); Monocytes # (Auto) 0.8 Thou/mm3 (0.0-0.8); Monocytes % (Auto) 8 % (0-12); Neutrophils # (Auto) 6.2 Thou/mm3 (1.8-7.7); Neutrophils % (Auto) 60 % (37-80); Nucleated Red Blood Cell # 0.00 Thou/mm3 (0.00-0.00); Nucleated Red Blood Cell % 0 /100 WBC (0); Platelet Count 310 Thou/mm3 (140-440); RDW Standard Deviation 42.5 fL (35.1-43.9); Red Blood Count 5.11 Miln/mm3 (4.50-5.90); White Blood Count 10.4 Thou/mm3 (3.8-10.6)
--- NOTE | 2024-09-24 15:36 | PC.NURSE ---
CALLED CT RE: PT WOULD BE TAKEN. HE IS NUMBER 5 IN LINE. PT INFORMED.
[2024-09-24 15:41] LABS: Alanine Aminotransferase 17 U/L (10-49); Albumin, Serum 4.3 gm/dL (3.5-5.0); Albumin/Globulin Ratio 1.7 (1.2-2.2); Alkaline Phosphatase 94 U/L (46-116); Anion Gap 8 (7-16); Aspartate Amino Transferase 19 U/L (0-34); BUN/Creatinine Ratio 11 Ratio (12-20); Bilirubin,Total 0.5 mg/dL (0.3-1.2); Blood Urea Nitrogen 17 mg/dL (9-23); Calcium 9.1 mg/dL (8.3-10.6); Calcium (Corrected) 9.1 mg/dL (8.5-10.1); Carbon Dioxide 29.2 mMol/L (20.0-31.0); Chloride 107 mMol/L (98-107); Creatinine (Component) 1.6 mg/dL (0.6-1.3); Estimated Creatinine Clearance 63.8 mL/min (>60); Globulin 2.5 gm/dL (2.3-3.5); Glucose 109 mg/dL (74-106); Lipase 35 U/L (12-53); Osmolality,Calculated 289 (275-295); Potassium 3.7 mMol/L (3.4-5.1); Sodium 144 mMol/L (136-145); Total Protein 6.8 gm/dL (5.7-8.2); eGFR 53 See Note
[2024-09-24 16:08] LABS: Collection Type, Urine Clean Catch
[2024-09-24 16:27] LABS: Bacteria,Urine 1+; Bilirubin,Urine Negative (Negative); Blood,Urine 3+ (Negative); Clarity,Urine Turbid (Clear/Hazy); Color,Urine Yellow (Lt Yel-Yel); Glucose, Urine Negative (Negative); Hyaline Casts,Urine < 1 /hpf (0-1); Ketones,Urine Negative (Negative); Leukocyte Esterase,Urine Positive (Negative); Nitrite,Urine Negative (Negative); PH,Urine 6.0 (5.0-7.0); Protein,Urine 2+ (Neg - Trace); RBC,Urine 733 /hpf (0-3); Specific Gravity,Urine 1.023 (1.001-1.035); Squamous Epithelial Cell,Urine 1 /hpf (0-5); Urobilinogen,Urine Negative mg/dL (0.0-1.0); WBC,Urine 44 /hpf (0-5)
[2024-09-24 16:28] LABS: Culture Indicated,Urine Yes; Sperm,Urine Present
--- NOTE | 2024-09-24 19:08 | PC.NURSE ---
INFORMED PT THAT HE IS GOING TO BE ADMITTED. WAITING FOR ROOM IN THE BACK AND THEN A HOSPITAL BED.
[2024-09-24 19:39] VITALS: BP 138/88; PULSE 89; RESP 18; TEMP 36.6; O2SAT 97
--- NOTE | 2024-09-24 20:03 | PD.EDADULT ---
ED General RME/HPI General Chief complaint: General Adult/Misc Complain Stated complaint: PT SAYS URETERAL STENT CAME OUT, IN CATH TUBE Time Seen by Provider: 09/24/24 20:01 Arrival date/time: 09/24/24 14:39 Limitations: no limitations RME / HPI RME / HPI narrative: 09/24/24 14:39 49 yr old male presents with concerns for possible malfunction of catheter and stent issue ------- Dr. Michaels's Main ED Evaluation: 49yo male with a history of left ureteral stone, and left hydronephrosis status-post left ureteral stent placement in 2021 underwent part 1 of staged cystoscopy, retrograde ureteroscopy, and laser stone fragmentation on 09/05/24 presents to the ED for a chief complaint of left-sided back pain. Patient states his pain worsens with movement. Patient also notes having pain to his catheter and was concerned, so he came in for evaluation. Patient reports associated nausea. No fever, chills, vomiting or any other associated symptoms. NKA. Related Data Previous Rx's ?Medication ?Instructions ?Recorded lisinopril 40 mg tablet 40 mg PO QDAY #30 tabs 01/11/22 tamsulosin 0.4 mg capsule 0.4 mg PO QDAY #90 caps 09/12/24 hydrocodone 5 mg-acetaminophen 325 1 tab PO Q6H PRN pain #10 tabs 09/13/24 mg tablet Allergies Allergy/AdvReac Type Severity Reaction Status Date / Time No Known Allergies Allergy Verified 09/24/24 14:42 Review of Systems Review of Systems Systems Reviewed: All systems reviewed, normal except as documented Past Medical History Past Medical History NEUROLOGIC: Negative Neurological Disorders or Seizures CARDIAC: Positive Hypertension; Negative Cardiac Disorders or Congestive Heart Failure RESPIRATORY: Negative Chronic Obstructive Pulmonary Disease (COPD) or Asthma GASTROINTESTINAL: Positive Gastrointestinal Disorders and Gall Bladder Disease GENITOURINARY: Negative Genitourinary Disorders or Renal Disease MUSCULOSKELETAL: Positive Musculoskeletal Disorders ENDOCRINE: Negative Endocrine Disorders, Diabetes Mellitus Type 1 or Diabetes Mellitus Type 2 HEMATOLOGIC: Negative Blood Disorders or Sickle Cell Disease PSYCHO/SOCIAL: Positive Attention Deficit Hyperactivity Disorder OTHER HISTORY: Positive Chicken Pox; Negative Hospitalization, Autoimmune Disease, Down Syndrome, Developmental Delay, Shingles, Falls, Blood Transfusions, Anesthesia Reactions or Cancer Family History FAMILY HISTORY: Positive Family Cardiac Disorders, Family Cancer and Family Surgery; Negative Family Psychiatric Problems, Family Respiratory Disorders, Family Gastrointestinal Problems or Family Anesthesia Reaction Social History SMOKING STATUS: Never smoker SECOND HAND EXPOSURE: No SUBSTANCE USE: marijuana and amphetamines ED Exam General Limitations: Present no limitations General appearance: Present alert and in no apparent distress Head Head exam: Present atraumatic Eye Eye exam: Present normal appearance, PERRL and EOMI ENT ENT exam: Present normal exam, normal oropharynx and mucous membranes moist Neck Neck exam: Present normal inspection, full ROM and trachea midline Chest Chest inspection: Present normal inspection and symmetric chest wall rise Respiratory Respiratory exam: Present normal lung sounds bilaterally Cardiovascular Cardiovascular exam: Present regular rate, normal rhythm and normal heart sounds Abdominal Exam Abdominal exam: Present soft and normal bowel sounds Extremities Exam Extremities exam: Present normal inspection and full ROM Back Exam Back exam: Present normal inspection and full ROM Neurological Exam Neurological exam: Present alert, oriented X3 and CN II-XII intact Psychiatric Psychiatric exam: Present normal affect and normal mood Skin Skin exam: Present warm, dry, intact and normal color Course Quality Measures none Orders Category Date Time Status CT abdomen pelvis wo con Stat Exams 09/24/24 14:55 Completed CBC Stat Lab 09/24/24 15:09 Completed Comprehensive Metabolic Panel Stat Lab 09/24/24 15:09 Completed Lipase Stat Lab 09/24/24 15:09 Completed UA, C/S IF [Urinalysis, C/S if Indicated] Stat Lab 09/24/24 16:00 Completed Urine Culture Stat Lab 09/24/24 16:00 Received HYDROcodone/APAP 10/325 [[place] 10/325] Med 09/24/24 14:55 Discontinued 1 tab PO X1 ONE Vital Signs Vital signs: Vital Signs Temperature 98.4 F 09/24/24 15:00 Pulse Rate 106 H 09/24/24 15:00 Respiratory Rate 18 09/24/24 15:00 Blood Pressure 128/94 H 09/24/24 15:00 Pulse Oximetry (%) 96 09/24/24 15:00 Oxygen Delivery Method Room Air 09/24/24 15:00 Discharge Plan Plan Patient Disposition: Admit Acute Care w/in Hospital Patient condition on transfer: Stable Prescriptions/Referrals Prescriptions/Med Rec: No Action lisinopril 40 mg tablet 40 mg PO QDAY Qty: 30 0RF tamsulosin 0.4 mg Capsule 0.4 mg PO QDAY Qty: 90 0RF hydrocodone-acetaminophen 5-325 mg tablet 1 tab PO Q6H MDD 4 PRN (Reason: pain) Qty: 10 0RF Referrals: Renetta Redd PA-C [Primary Care Provider] - In 1 week Problem List Clinical Impression: Acute on chronic back pain, S/P ureteral stent placement Patient/Caregiver Discharge Instructions Print Language: Jamaican Stand Alone Forms: [employer] Award Info., Patient Portal Info Letter MDM Narrative MDM hospital course: Scribe Attestation: 09/24/24 Yolis Hines am scribing for and in the presence of Dr. Michaels. Dr. Thao was consulted during the day shift and requested to admit this patient. Requests the patient to be made NPO after midnight. 2006: Discussed case with the resident physician, attending Dr. Munson from Hospitalist service regarding admission. Discussed patients ED course, exam findings, labs, and radiology results. The Hospitalist agrees to accept the patient for admission. Clinical Information Provided by patient Medical Records Reviewed [facility] (Per chart review, patient was seen here on 09/14/24 for displacement of indwelling ureteral stent.) Meds/Rx Considered, not Ordered None Labs/Rad/Tests considered, not Ordered None Chronic Illness/Social Conditions Add or document further as needed: History of left ureteral stone, and left hydronephrosis status-post left ureteral stent placement in 2021 underwent part 1 of staged cystoscopy, retrograde ureteroscopy, and laser stone fragmentation on 09/05 Lab Interpretation Labs: interpreted by ne Lab(s) interpretation(s): CBC normal, Creatinine 1.6, UA shows 733 RBCs, 44 WBCs, and 1+ bacteria. Imaging Imaging interpretation: interpreted by ne Radiology reports / interpretation(s): [facility] Report Signed Patient: ALBERTO LICONA [facility]. Record#: [id number] Birthdate: 1975 Age/Sex: 49 / M Location: [facility] Attending Dr: Ordering Physician: Rafiq (ROSA),Brian LEE Date of Service: 09/24/24 Procedure(s): CT abdomen pelvis wo con Accession Number(s): [id number] cc: Renetta Redd; Rafiq DE LA TORRE),Brian LEE; Walter Tucker MD~ Examination: CT abdomen and pelvis without contrast. Coronal 3-D reconstructions. Sagittal 2-D reconstructions. Date and time of exam:September 24, 2024, 1654 hours INDICATIONS: Lower abdominal pain beginning today, history left ureteral stent with ureteral calculi on CT study September 14, 2024 CTDI: vol (mGy): 6.95 DLP: (mGycm): 429 Technique: Axial images of the abdomen have been obtained, 3 mm slice thickness Intravenous contrast material has not been administered. Low dose protocols were performed. One or more of the following dose reduction techniques were used; automated exposure control, adjustment of the mA and/or KV according to patient size, use of iterative reconstruction technique. Findings: No focal liver or splenic lesions No gallstones No pancreatic mass. Minimal nodular thickening left adrenal gland Left ureteral stent satisfactory position with no significant hydronephrosis 6 mm 5 mm ureteral calculi adjacent to the distal portion of the stent Urinary [place] catheter satisfactorily positioned Moderate disc narrowing L5-S1 IMPRESSION: Left ureteral stent satisfactory position with no significant hydronephrosis Dictated By: Walter Tucker MD Signed By: <Electronically signed by Walter Tucker MD in [place]> 09/24/24 1722 Medication Administration(s) Medication Administration History Discontinued Medications Hydrocodone Bitart/Acetaminophen (Hydrocodone/Apap 10/325 Tab) 1 tab PO X1 ONE Stop: 09/24/24 14:56 Last Admin: 09/24/24 15:57 Dose: 1 tab Documented By: LP see above Diagnosis Differential diagnosis: worsening complication of left calcified stent, pyelonephritis, UTI Most likely dx, and/or detailed dx discussion: see clinical impression above Dispositon Disposition: Admit
[2024-09-24 20:27] VITALS: BP 116/82; PULSE 81; RESP 18; TEMP 36.8; O2SAT 96
--- NOTE | 2024-09-24 21:41 | ESHP_ITS ---
<Statement entered by Willis Munson MD - 09/25/24 07:45> I have discussed and was present for the essential components of the history, physical examination, diagnosis, and treatment plan with the resident. I agree with the patient's care as documented by the resident and amended herein by me. Willis Munson MD FAC. Documentation for date of: 09/24/24 HPI History of Present Illness History of present illness: Ace Figueroa is a 49-year-old M with a PMH of ADHD, left ureteral stone, left hydronephrosis, and HTN who presented to the ED with left-sided back pain. Patient was initially followed by a urologist named Dr. Brooks who had placed a ureteral stent in 2021 after patient had ESWL (extracorporeal shock wave lithotripsy) performed. Due to difficulties with insurance, patient was not followed by urology since 2021. Patient was recently seen by urologist, Dr. Thao, on 09/05 where he underwent staged procedure with cystoscopy, retrograde ureteroscopy, laser stone fragmentation, but the left ureteral stent had not been removed at this time. Following these procedures, patient was noted to have leukocytosis and was hospitalized at [facility] from 09/10/24-09/13/24. During this stay, patient was afebrile and his leukocytosis was thought to be reactive leukocytosis. He was then discharged on tamsulosin, Hemphill, and prophylactic Levaquin for UTI due to the presence of renal and ureteral stones with Trujillo catheter in place. However, on 09/14, patient's left ureteral stent was displaced to the indwelling catheter after he tried to have a BM. He was not formally admitted at this time. Today (09/24/2024), per ED note, patient stated that he has left-sided back pain that worsens with movement and that he also has pain to his catheter which concerned him regarding possible malfunction of ureteral stent and catheter. However, during this quality analyst/technical writer's interview, patient was comfortable and did not have any complaints after the nurse deflated the Trujillo catheter balloon. He did endorse however, that if he breathed deeply or twisted his body overtly, it caused him sharp kidney pain. He denies any other urinary symptoms. Patient is pending left ureteral stent removal tomorrow by Dr. Thao. In the ED, vitals showed: BP 128/94 HR 106 RR 18 Temp 98.4 SpO2 96% on room air ED Course: CBC was unremarkable. CMP showed an elevation of his baseline creatinine of 1.3-1.6 and a reduced EGFR of 53. UA showed 1+ bacteria, 3+ blood, 2+ protein, RBC 733, WBC 44, and positive leukocyte esterase. Imaging: CTAP showed satisfactory placement of left ureteral stent (without significant hydronephrosis) and Trujillo catheter as well as a 6 mm x 5 mm ureteral calculi adjacent to the distal portion of the stent. In the ED, patient was given Hemphill, and ceftriaxone. He was also started on 1 L LR maintenance at 75 mL/hr. Patient was admitted for work-up and management of UTI, CHICHI, and is pending ureteral stent removal by Dr. Thao tomorrow. Review of Systems Review of Systems Narrative Review of Systems: General: Denies fevers or chills HEENT: Denies congestion or sore throat Heart: Denies chest pain or palpitations Lungs: Denies shortness of breath or cough Abdomen: Endorses kidney pain upon breathing deeply or twisting his body. Denies nausea, vomiting, constipation, diarrhea, or blood in stool Genitourinary: Denies frequency, urgency, dysuria, or hematuria Neurology: Denies any changes in vision, weakness or difficulty speaking Review of systems otherwise negative except what is mentioned above. Past Medical History Past Medical History NEUROLOGIC: Negative Neurological Disorders or Seizures CARDIAC: Positive Cardiac Disorders and Hypertension; Negative Congestive Heart Failure RESPIRATORY: Negative Respiratory Disorders, Chronic Obstructive Pulmonary Disease (COPD) or Asthma GASTROINTESTINAL: Positive Gastrointestinal Disorders and Gall Bladder Disease GENITOURINARY: Negative Genitourinary Disorders or Renal Disease MUSCULOSKELETAL: Negative Musculoskeletal Disorders ENT: Negative History of ENT Problems ENDOCRINE: Negative Endocrine Disorders, Diabetes Mellitus Type 1 or Diabetes Mellitus Type 2 HEMATOLOGIC: Negative Blood Disorders or Sickle Cell Disease PSYCHO/SOCIAL: Positive Attention Deficit Hyperactivity Disorder OTHER HISTORY: Positive Chicken Pox; Negative Hospitalization, Autoimmune Disease, Down Syndrome, Developmental Delay, Shingles, Falls, Blood Transfusions, Anesthesia Reactions or Cancer Family History FAMILY HISTORY: Positive Family Cardiac Disorders, Family Cancer and Family Surgery; Negative Family Psychiatric Problems, Family Respiratory Disorders, Family Gastrointestinal Problems or Family Anesthesia Reaction Surgical History OTHER SURGICAL HX: ureter stent Social History SMOKING STATUS: Never smoker SECOND HAND EXPOSURE: No SUBSTANCE USE: marijuana and amphetamines Past Medical History Comments PMH COMMENT: PMH: ADHD, left ureteral stone, left hydronephrosis, and HTN PSH: Mentioned above Medications: Lisinopril, Adderall, Flomax Allergies: None FH: Grandma had melanoma, dad of liver cirrhosis and congestive heart failure (drinker) SH: Lives in a house in [place] with 2 daughters and his significant other, denies any drinking smoking or recreational drug use history Exam Vital Signs Temp Pulse Resp BP Pulse Ox O2 Del Method 98.2 F 81 18 116/82 96 Room Air 09/24/24 20:27 09/24/24 20:27 09/24/24 20:27 09/24/24 20:27 09/24/24 20:27 09/24/24 20:27 Narrative Exam Physical Exam: General: Alert, no acute distress. Skin: Warm, dry, intact, no obvious rash. Head: Normocephalic, atraumatic. Eye: Normal conjunctiva, PERRL. Throat: Oral mucosa moist. No obvious lesions in oropharynx. Cardiovascular: Regular rate and rhythm, no murmur, +S1/S2. Respiratory: Lungs are clear to auscultation, respirations unlabored, no crackles, no wheezing. Gastrointestinal: Soft, nontender, non-distended. No guarding or rebound tenderness. Extremities: No edema, no cyanosis, no clubbing. 2+ radial pulse bilaterally, 2+ posterior tibial pulse bilaterally. Neuro: No focal deficits observed. Conversant, moving all extremities. No overt cerebellar signs/incoordination. Psychiatric: Cooperative, appropriate affect. Results: Labs 09/24/24 15:09 09/24/24 15:09 Labs: Short CBC 09/24/24 Range/Units 15:09 WBC 10.4 (3.8-10.6) Thou/mm3 Hgb 15.2 (13.5-16.0) g/dL Hct 45.3 (41.0-53.0) % Plt Count 310 D (140-440) Thou/mm3 BMP 09/24/24 15:09 Sodium 144 Potassium 3.7 Chloride 107 Carbon Dioxide 29.2 BUN 17 Creatinine 1.6 H Glucose 109 H Calcium 9.1 Liver Function 09/24/24 Range/Units 15:09 Total Bilirubin 0.5 (0.3-1.2) mg/dL AST 19 (0-34) U/L ALT 17 (10-49) U/L Alkaline Phosphatase 94 (46-116) U/L Albumin 4.3 (3.5-5.0) gm/dL Urine 09/24/24 Range/Units 16:00 Urine Color Yellow (Lt Yel-Yel) Urine Clarity Turbid A (Clear/Hazy) Urine pH 6.0 (5.0-7.0) Ur Specific [place] 1.023 (1.001-1.035) Urine Protein 2+ A (Neg - Trace) Urine Glucose (UA) Negative (Negative) Quality Measures Quality Measures none Medications Home Medications and Allergies Home Medications ?Medication ?Instructions ?Recorded ?Confirmed ?Type dextroamphetamine-amphetamine ER 10 mg PO DAILY ADDHD 09/24/24 09/24/24 History 10 mg 24hr capsule,extend release (Adderall XR) lisinopril 10 mg tablet 10 mg PO DAILY High blood pr essure 09/24/24 09/24/24 History Allergies Allergy/AdvReac Type Severity Reaction Status Date / Time No Known Allergies Allergy Verified 09/24/24 14:42 Visit Medications Acetaminophen (Acetaminophen 325 Mg Tablet) 650 mg PO Q6H PRN PRN Reason: PAIN SCALE 1-3 (mild Stop: 10/24/24 21:24 Lactated Ringer's (Lactated Ringers) 1,000 mls @ 75 mls/hr IV .[id number] [facility] Stop: 10/24/24 21:29 Ceftriaxone Sodium/Dextrose (Rocephin/D5w 1gm Iv Premix) 1 gm in 50 mls @ 100 mls/hr IV QDAY ANIKET Stop: 10/01/24 21:29 Ondansetron HCl (Ondansetron Inj 2 Mg/Ml Inj 2 Ml) 4 mg IVP Q6H PRN; Protocol PRN Reason: NAUSEA OR VOMITING Stop: 10/24/24 21:24 Sennosides (Senna Tablet) 1 tab PO QDAY PRN; Protocol PRN Reason: constipation Stop: 10/24/24 21:24 Tramadol HCl (Tramadol Hcl 50 Mg Tablet) 50 mg PO Q6HR PRN PRN Reason: PAIN SCALE 4-10(Mod-Sev Stop: 09/29/24 21:31 Discontinued Medications Hydrocodone Bitart/Acetaminophen (Hydrocodone/Apap 10/325 Tab) 1 tab PO X1 ONE Stop: 09/24/24 14:56 Last Admin: 09/24/24 15:57 Dose: 1 tab Assessment & Plan Assessment Ace Figueroa is a 49-year-old M with a PMH of ADHD, left ureteral stone, left hydronephrosis, and HTN who presented to the ED with left-sided back pain. Patient was admitted for work-up and management of UTI, CHICHI, and is pending ureteral stent removal by Dr. Thao tomorrow. #Complicated UTI #Trujillo catheter #Hx of ureterolithiasis UA showed 1+ bacteria, 3+ blood, 2+ protein, RBC 733, WBC 44, and positive leukocyte esterase Patient is afebrile without notable urinary symptoms Trujillo catheter and left ureteral stent are in place Diagnostic Inquiry -Monitor CBC, CMP -UCx Treatment Plan -IV Rocephin 1 gm qD #CHICHI, likely postrenal (BUN/creatinine ratio 11) #likely 2/2 to urinary tract obstruction by ureterolithiasis #pending left ureteral stent removal by Dr. Thao Creatinine 1.6 (baseline: 1.3), eGFR 53 CTAP showed satisfactory placement of left ureteral stent (without significant hydronephrosis) and Trujillo catheter as well as a 6 mm x 5 mm ureteral calculi adjacent to the distal portion of the stent Treatment Plan -1 L LR maintenance fluid @ 75 mls/hr -NPO -Monitor renal panel -Strict I's & O's Hospital Management: Disposition: pending left ureteral stent removal by Dr. Thao Diet: NPO starting 00:01, 09/25/24 GI Prophylaxis: None Bowel Prophylaxis: Senna DVT Prophylaxis: SCDs CODE STATUS: Full Code I have examined the patient and conferred with my attending, Dr. Munson, and my senior resident, Dr. Fitzpatrick, regarding them. Fazal Flor, DO PGY-1 Internal Medicine
[2024-09-24 22:17] VITALS: BP 135/95; PULSE 87; RESP 18; TEMP 36.4; O2SAT 98; BMI 24.8
[2024-09-24] MEDS: RINGERS LACTATED 1000 ML 1,000 ML 75 ML IV (22:48)
[2024-09-24] MEDS: cefTRIAXone/D5w 1gm IV premix 1 GM/50 ML BAG IV (22:48)
[2024-09-25] VITALS (16 sets, daily range): BP systolic 116–148; BP diastolic 77–98; PULSE 64–84; RESP 13–95; TEMP 36.1–36.6; O2SAT 95–100
[2024-09-25 05:30] LABS: Basophils # (Auto) 0.1 Thou/mm3 (0.0-0.2); Basophils % (Auto) 1 % (0-2.5); Eosinophils # (Auto) 0.8 Thou/mm3 (0.0-0.5); Eosinophils % (Auto) 9 % (0-10); Hematocrit 42.7 % (41.0-53.0); Hemoglobin 14.5 g/dL (13.5-16.0); Immature Granulocytes Auto 0.02 Thou/mm3 (0.00-0.00); Lymphocytes # (Auto) 3.1 Thou/mm3 (1.0-4.8); Lymphocytes % (Auto) 37 % (10-50); Mean Corpuscular HGB Conc 34.0 g/dl (31.0-37.0); Mean Corpuscular Hemoglobin 30.0 pg (25.0-35.0); Mean Corpuscular Volume 88 fL (80-100); Monocytes # (Auto) 0.8 Thou/mm3 (0.0-0.8); Monocytes % (Auto) 10 % (0-12); Neutrophils # (Auto) 3.7 Thou/mm3 (1.8-7.7); Neutrophils % (Auto) 44 % (37-80); Nucleated Red Blood Cell # 0.00 Thou/mm3 (0.00-0.00); Nucleated Red Blood Cell % 0 /100 WBC (0); Platelet Count 263 Thou/mm3 (140-440); RDW Standard Deviation 43.0 fL (35.1-43.9); Red Blood Count 4.84 Miln/mm3 (4.50-5.90); White Blood Count 8.4 Thou/mm3 (3.8-10.6)
[2024-09-25 05:53] LABS: Alanine Aminotransferase 15 U/L (10-49); Albumin, Serum 4.0 gm/dL (3.5-5.0); Albumin/Globulin Ratio 1.8 (1.2-2.2); Alkaline Phosphatase 92 U/L (46-116); Anion Gap 8 (7-16); Aspartate Amino Transferase 13 U/L (0-34); BUN/Creatinine Ratio 13 Ratio (12-20); Bilirubin,Total 0.2 mg/dL (0.3-1.2); Blood Urea Nitrogen 18 mg/dL (9-23); Calcium 8.7 mg/dL (8.3-10.6); Calcium (Corrected) 8.7 mg/dL (8.5-10.1); Carbon Dioxide 29.0 mMol/L (20.0-31.0); Chloride 107 mMol/L (98-107); Creatinine (Component) 1.4 mg/dL (0.6-1.3); Estimated Creatinine Clearance 72.9 mL/min (>60); Globulin 2.2 gm/dL (2.3-3.5); Glucose 103 mg/dL (74-106); Magnesium 1.6 mg/dL (1.6-2.6); Osmolality,Calculated 288 (275-295); Phosphorous 3.2 mg/dL (2.4-5.1); Potassium 3.7 mMol/L (3.4-5.1); Sodium 144 mMol/L (136-145); Total Protein 6.2 gm/dL (5.7-8.2); eGFR > 60 See Note
--- NOTE | 2024-09-25 07:36 | CHAP ---
Visited with patient and gave comfort, empathy and prayer.
--- NOTE | 2024-09-25 07:41 | PC.NURSE ---
Report to [facility] for surgery. Vitals stable, pre op checklist to be done. [facility] aware there are no orders for consent at this time
--- NOTE | 2024-09-25 08:30 | XR_ITS ---
Examination: Retrograde pyelogram left with without KUB Fluoroscopy 6 spot fluoroscopic films of the abdomen Date and time: September 25, 2024 0932 hours Comparison September 11, 2024 INDICATIONS: History flank pain left hydronephrosis 5 mm calculus in the left ureter, stent exchange today TECHNIQUE AND FINDINGS: 6 spot abdomen films obtained with demonstration contrast in dilated left renal collecting system Partial visualization left ureteral stent in satisfactory position Fluoroscopy 138 seconds radiation dose 38.18 milligray IMPRESSION: Retrograde pyelogram as above
--- NOTE | 2024-09-25 12:57 | SUR.PHASEI ---
1205: Pt received in [facility] via gurney. Report from Lynsey BEVERLY and Dr. Shah. Pt obtunded. Oral airway in place. Resp even, unlabored. VS stable. Trujillo to gravity draining clear, pale urine. 1215: Oral airway dc'd. Resp even, unlabored. No c/o pain. 1230: Pt resting with no complaints voiced. Resp even, unlabored. VS stable. 1245: Trujillo bag emptied of 700cc clear pale red urine. 1250: Receiving nurse available. Report to Kira BEVERLY. Pt transferred to 272 in stable condition.
--- NOTE | 2024-09-25 13:04 | PC.NURSE ---
Report received from [facility]. Pt. vitals stable and pt. is resting.
[2024-09-25] MEDS: TAMSULOSIN HCL 0.4 MG CAPSULE PO (13:24)
[2024-09-25] MEDS: RINGERS LACTATED 1000 ML 1,000 ML 75 ML IV (13:24)
[2024-09-25] MEDS: Magnesium Sulfate 4 GM Ivpb 4 GM/50 ML BAG IV (13:25)
[2024-09-25] MEDS: ONDANSETRON INJ 2 MG/ML INJ 2 ML 4 MG IVP (14:01)
--- NOTE | 2024-09-25 14:25 | PC.SS ---
SS follow up note; Removal of old stint. Possible discharge 3-4 days.
--- NOTE | 2024-09-25 14:34 | ESOP_ITS ---
Date of Procedure 09/25/24 Pre Op Diagnosis Calcified left ureteral stent, bladder stones, left ureteral obstruction left ureteral stone Post Op Diagnosis Same Procedure Cystoscopy scopic examination left retrograde pyelogram left ureteroscopy placement of left safety wire laser stone fragmentation of ureteral stones and removal of the calcification around the distal ureter, removal of one ureteral stent which was placed 2 weeks ago, under fluoroscopic examination and placement of another left ureteral stent alongside the calcified stent in a retrograde fashion Laser stone fragmentation of bladder stones evacuation of the bladder stone placement of Trujillo catheter Findings Calcified stent with calcification proximal curl of double-J stent and calcification almost encasing all of the curl of distal ureteral stent stent calcified all the way from the bladder to the kidney, left ureteral stent stuck in the ureter, difficult to remove complex,,multiple stone in the left ureter al ongside of calcified stent Procedure Description Indication for procedure this is a 49-year-old gentleman he had a left kidney stone he underwent a ESWL of left kidney stone placement of left ureteral stent in 2021 by another urologist. Patient did not follow-up and I saw him in my office with a history of recurrent UTI dysuria hematuria. He had a CAT scan and KUB which revealed a calcified stent left with bladder stones he was recommended above procedure procedure and complications were discussed with patient in great detail informed consent is obtained I explained to him it may be a staged procedure it may not be possible to remove the stent because it was calcified all the way and there was a stone at the proximal end of the stent then I may end up inserting another stent alongside of the calcified stent patient understood it well. I had explained to him and given the complexity of the case I gave him the option and recommended that he should go to a tertiary care Medical Center ,patient elected to have it done in the local hospital Patient was brought to the operating room in a satisfactory condition after appropriate premedication he was put on the operating table in a supine position he was appropriately identified by surgeon and operating room staff site scope and indications of the procedure were reconfirmed with the patient. 21 cystoscope was used to do the cystourethroscopy. At this time he received perioperative antibiotics 20 mg of Lasix IV was given for diuresis and prevention of pyelocalyceal infectious complication. I introduced the scope into the bladder. There were calcification all around the distal portion of calcified stent which was placed 3 years ago and I had put another stent to 2 weeks ago alongside the previous calcified stent. I used 200 ?m laser fiber and remove the calcification around the distal of the stent. Next I removed the stent which was placed by me 2 weeks ago . The calcified stent which was placed 3 years ago was calcified and with the laser fiber 200 ?m I was able to remove the calcification around the stent in the bladder and distal ureter. At this time I passed a open-ended [place] catheter into the left ureteral orifice did a retrograde pyelogram nothing will go beyond the distal ureter because the stent was calcified all the way to the kidney and there were stones in the ureter. Next I placed the safety wire into the upper pole calyx. I tried to remove the calcified stent it was extremely difficult I was very careful not to cuase evulsion of the ureter I used semirigid ureteroscope passed into the distal ureter there were multiple stone I was able to remove calcification around the distal one third of the ureter and there were multiple stones I was able to fragment and evaporate those stones. As I tried to pull the calcified stent it was stuck in the proximal ureter with the stones inflammatory reaction around the calcified stent ureter was not accommodating and with the stone at the proximal end of the stent it was not possible to laser fragmented to all stones because at this juncture the access to the proximal and mid ureter was extremely difficult. I tried as much as possible to remove the calcification from the distal ureter. At this time I decided to put another stent alongside the previous stent A1 I had difficulty in placing 6 Mongolian double-J I changed this to 5 Mongolian double-J and I was able to place it over the safety wire proximal and was in the upper pole calyx distal in the bladder. All the calcification re moved around the distal portion of the stent were in the bladder and I removed with the ElifTotal-trax evacuator. Next #16 Trujillo catheter was inserted balloon was inflated with 10 cc of water patient after having tolerated the procedure well was moved to recovery room in a satisfactory condition. Patient disposition this patient needs to go to tertiary care [facility] where there is interventional radiologist available. I am going to explain this to patient and his primary care physician I am also going to make his appointment with my colleague who will do ESWL of the stone in the proximal ureter and calcified stent Anesthesia GETA Pathology / specimen None Estimated Blood Loss 10 Condition Stable Disposition PACU Surgeon Dixon Thao MD Surgical Staff Operation Date: 09/25/24 08:30 Case Staff Anesthesiologist: Linwood Khan
--- NOTE | 2024-09-25 15:05 | ESPR_ITS ---
<Statement entered by Lanie Tolbert MD - 09/28/24 12:39> I reviewed above note and agree with findings and plans. I have also personally examined the patient with medicine team and went over assessment and plan with medical team including senior internal auditor and resident physician. <Statement entered by Joe Gallego MD - 09/25/24 17:48> Patient seen and examined at bedside. I discussed and supervised with the senior internal auditor physician who took care of this patient. I personally saw and examined the patient. I agree with most of the assessment and plan. Patient received cystoscopy today, procedure well tolerated. Ureteral stent unable to be removed due to significant calcification, new one placed. Will continue monitoring, IV antibiotics. Plan to DC Trujillo prior to discharge. Plan of care discussed with attending Dr. Joe Gallego MD PGY-2 Documentation for date of: 09/25/24 Subjective Subjective Interval history: Patient seen in the afternoon following urologic procedure. He was sleepy but stated he felt fine and had no acute complaints. and mother were updated on the operation, and their questions were addressed. Urology plans for continued inpatient observation over the next 3?4 days, continuation of IV antibiotics, and Trujillo removal with voiding trial planned for tomorrow. Exam Vital Signs Temp Pulse Resp BP Pulse Ox O2 Del Method O2 Flow Rate 97.8 F 74 15 141/96 H 97 Room Air 6 09/25/24 12:45 09/25/24 12:45 09/25/24 12:45 09/25/24 12:45 09/25/24 12:45 09/25/24 08:00 09/25/24 12:25 Narrative Exam General: Post-op, drowsy but arousable, no acute distress CV: RRR, no murmurs Resp: CTAB, non-labored GI: Soft, NT/ND : Trujillo catheter in place, no visible blood in tubing Neuro: Follows commands, no focal deficits Skin: No rashes, warm, dry Extremities: No edema Objective Labs 09/25/24 05:07 09/25/24 05:07 Labs: Laboratory Results - last 24 hr 07/29/25 07/29/25 07/30/25 15:09 16:00 05:07 WBC 10.4 8.4 RBC 5.11 4.84 Hgb 15.2 14.5 Hct 45.3 42.7 MCV 89 88 MCH 29.7 30.0 MCHC 33.6 34.0 RDW Std Deviation 42.5 43.0 Plt Count 310 D 263 D Neut % (Auto) 60 44 Lymph % (Auto) 26 37 [place] % (Auto) 8 10 Eos % (Auto) 6 9 Baso % (Auto) 1 1 Neut # (Auto) 6.2 3.7 Lymph # (Auto) 2.7 3.1 [place] # (Auto) 0.8 0.8 Eos # (Auto) 0.6 H 0.8 H Baso # (Auto) 0.1 0.1 Immature Gran # (Auto) 0.02 H 0.02 H Absolute Nucleated RBC 0.00 0.00 Immature Gran % 0 0 Nucleated RBC % 0 0 Sodium 144 144 Potassium 3.7 3.7 Chloride 107 107 Carbon Dioxide 29.2 29.0 Anion Gap 8 8 BUN 17 18 Creatinine 1.6 H 1.4 H Estim Creat Clear Calc 63.8 72.9 eGFR 53 L > 60 BUN/Creatinine Ratio 11 L 13 Glucose 109 H 103 Calculated Osmolality 289 288 Calcium 9.1 8.7 Corrected Calcium 9.1 8.7 Phosphorus 3.2 Magnesium 1.6 Total Bilirubin 0.5 0.2 L AST 19 13 ALT 17 15 Alkaline Phosphatase 94 92 Total Protein 6.8 6.2 Albumin 4.3 4.0 Globulin 2.5 2.2 L Albumin/Globulin Ratio 1.7 1.8 Lipase 35 Ur Collection Type Clean Catch Urine Color Yellow Urine Clarity Turbid A Urine pH 6.0 Ur Specific [place] 1.023 Urine Protein 2+ A Urine Glucose (UA) Negative Urine Ketones Negative Urine Blood 3+ A Urine Nitrite Negative Urine Bilirubin Negative Urine Urobilinogen (Auto) Negative Ur Leukocyte Esterase Positive Urine RBC 733 H Urine WBC 44 H Ur Squamous Epith Cells 1 Urine Bacteria 1+ A Hyaline Casts < 1 Urine Sperm Present A Ur Culture Indicated? Yes Quality Measures Quality Measures VTE prophylaxis Assessment & Plan Assessment Current Active Medications: Generic Name Dose Route Start Last Admin Trade Name Freq PRN Reason Stop Dose Admin Acetaminophen 650 mg 09/24/24 21:25 Acetaminophen 325 Mg Tablet PO 10/24/24 21:24 Q6H PRN PAIN SCALE 1-3 (mild Lactated Ringer's 1,000 mls @ 75 mls/hr 09/24/24 21:30 09/25/24 13:24 Lactated Ringers IV 10/24/24 21:29 75 mls/hr .[id number] ANIKET Administration Ceftriaxone Sodium/Dextrose 1 gm in 50 mls @ 100 mls/hr 09/25/24 21:00 Rocephin/D5w 1gm Iv Premix IV 10/02/24 20:59 HS ANIKET Ondansetron HCl 4 mg 09/24/24 21:25 09/25/24 14:01 Ondansetron Inj 2 Mg/Ml Inj 2 Ml IVP 10/24/24 21:24 4 mg Q6H PRN Administration NAUSEA OR VOMITING Protocol Sennosides 1 tab 09/24/24 21:25 09/24/24 23:20 Senna Tablet PO 10/24/24 21:24 1 tab QDAY PRN Administration constipation Protocol Tamsulosin HCl 0.4 mg 09/25/24 09:00 09/25/24 13:24 Tamsulosin Hcl 0.4 Mg Capsule PO 10/25/24 08:59 0.4 mg QDAY ANIKET Administration Tramadol HCl 50 mg 09/24/24 21:32 09/24/24 23:20 Tramadol Hcl 50 Mg Tablet PO 09/29/24 21:31 50 mg Q6HR PRN Administration PAIN SCALE 4-10(Mod-Sev Plan 49-year-old male with history of nephrolithiasis, chronic left ureteral stent, and recurrent UTIs, admitted for complicated UTI and CHICHI, underwent attempted removal of calcified ureteral stent and laser stone fragmentation; new stent placed due to incomplete extraction, post-op stable, continuing IV antibiotics and Trujillo with plan for voiding trial tomorrow. #Complicated UTI UTI in the setting of chronic indwelling calcified ureteral stent, Trujillo, and obstructing stones; afebrile but positive UA and leukocytosis on prior admission. UA with +LE, WBC 44, RBC 733, 3+ blood, 2+ protein; urine culture pending Plan: * Continue ceftriaxone 1g IV daily (09/25- ) * Monitor for fevers, flank pain * Await urine culture, MRSA screen * Consider PO transition once stable #CHICHI, prerenal vs postrenal Mild creatinine elevation on admission (1.6, now 1.4; baseline 1.3), likely from obstructive nephropathy vs dehydration; stent intervention expected to improve clearance. Plan: * Continue IV LR @ 75 mL/hr * Monitor renal function daily * Strict I&Os * Assess post-stent intervention renal response #Left ureteral obstruction / Calcified ureteral stent Underwent cystoscopy, laser stone fragmentation, removal of new stent, and placement of new left ureteral stent alongside calcified retained stent due to difficulty with full extraction; partial clearance of distal ureter. Calcified stent encased in proximal ureter with multiple ureteral and bladder stones Plan: * Continue inpatient monitoring x3-4 days per urology * Follow-up with tertiary center urology or IR for definitive management * Restarted tamsulosin * Monitor for hematuria, signs of infection or obstruction #Trujillo catheter (post-op management) Trujillo reinserted intra-op; plan for one additional day before trial of void. Plan: * Leave Trujillo in place today * Attempt trial of void tomorrow * Monitor urine output and clarity #Hypertension, ADHD (stable) Plan: * Home home lisinopril, Adderall as appropriate * Monitor BP, no adjustments needed currently Health Maintenance: Disposition: Continue inpatient stay per urology x3?4 days Feeding: Regular diet DVT prophylaxis: SCDs GI prophylaxis: Consider famotidine with continued [place] Code status: Full Code ----- Plan discussed with attending physician Dr. Tolbert and senior resident Dr. Brenda MD PGY-1 Internal Medicine
--- NOTE | 2024-09-25 16:02 | ESCONSULT_ITS ---
RE: ALBERTO LICONA : 1975 DATE OF CONSULTATION: 09/25/2024 CHIEF COMPLAINT: 1. Left kidney stone, status post ESWL and placement of left ureteral stent done in 2021 by another urologist. 2. Recurrent urinary tract infection. 3. Bladder stone, calcified stent in the left ureter all the way from bladder to the kidney and there is a stone at the curve of the stent in the renal pelvis as well as in the bladder. He had nausea, no vomiting. The patient had a cystoscopic examination, removal of the bladder stone, and attempt to remove the stent, which was calcified. It was very difficult to do that. The patient came for the second stage for cysto, retrograde left ureteroscopy, possible removal of the stent, and possible laser stone fragmentation. PAST MEDICAL HISTORY: Obesity. Past medical history, family history, review of the system, please refer to patient's history form dated 09/24/2024. REVIEW OF SYSTEMS: All systems reviewed and negative except documented. PHYSICAL EXAMINATION: GENERAL: Condition is satisfactory. Orientation x3. HEENT: Normocephalic and atraumatic. Eyes: No anemia or jaundice. NECK: Supple. Trachea is central. Thyroid is not enlarged. EXTREMITIES: Revealed no edema, cyanosis or clubbing. VITAL SIGNS: Stable. They are in HPI, in EMR. CHEST: Symmetrical. HEART: Regular rate and rhythm. ABDOMEN: Obese. No masses. Liver, spleen, and kidney not palpable. CAT scan is reviewed by me. This revealed a stone in the bladder as well as stone in the renal pelvis at the proximal curve of double J stent. PLAN: Cysto, retrograde ureteroscopy, possible removal of the stent, and replacement of stent with another stent, which will be subsequently removed. There is a possibility if I am unable to remove the stent, I explained to the patient I may have to exchange the other stent and then he may have to come back. I do not have a facility of putting a IR. I also explained to patient if I am unable to do that, there is a possibility he may have to have a placement of percutaneous nephrostomy and he [facility] be [facility]. All above issues were discussed with patient in detail. Questions answered to his satisfaction. He verbalized understanding. DT: 12:30:54 TT: 16:00:00 Ref: [id number] - TID: [id number]
--- NOTE | 2024-09-25 16:05 | PC.SS ---
Patient Ace Figueroa is a 49 Year old male admitted for PRE REG. SS met with patient at bedside to discuss discharge plan and verify demographic information. Patient reports he lives at home with his life partner, Vida Young. Patient reports his life partner, Vida Young is his surrogate decision maker, [phone]. Patient reports he is able to complete all ADL's independently. Patient does not utilize any source of DME to assist with ambulation. Pharmacy of choice is [facility]. PCP is Renetta Arellano. At time of discharge patient will return back home, family will provide transportation. Next of kin:Life Partner, Vida Young, [phone] Discharge plan: Home
--- NOTE | 2024-09-25 17:54 | PC.NURSE ---
Pt. complaining of pain, RN pulled pain medication and took it to pt. room. Pt. stated can you come back after I eat my Dinner.
[2024-09-25] MEDS: HYDROmorphone INJ 2 MG/ML VIAL 1 MG IVP ×2 (18:05→23:04)
--- NOTE | 2024-09-25 18:12 | PC.NURSE ---
Pt. refuses SCDs at this time. Pt. educated on risks vs benefits of using SCDs. Pt. requests break from SCD sleeves due to anxiety
[2024-09-25] MEDS: cefTRIAXone/D5w 1gm IV premix 1 GM/50 ML BAG IV (21:04)
--- NOTE | 2024-09-25 23:05 | PC.NURSE ---
Pt c/o severe pain, medicated with Dilaudid as ordered.
[2024-09-26] VITALS (8 sets, daily range): BP systolic 118–156; BP diastolic 79–99; PULSE 68–90; RESP 16–97; TEMP 36.1–36.3; O2SAT 95–98
[2024-09-26] MEDS: RINGERS LACTATED 1000 ML 1,000 ML 75 ML IV ×2 (04:34→22:33)
[2024-09-26] MEDS: HYDROmorphone INJ 2 MG/ML VIAL 1 MG IVP ×3 (04:39→20:39)
[2024-09-26 05:27] LABS: Basophils # (Auto) 0.0 Thou/mm3 (0.0-0.2); Basophils % (Auto) 0 % (0-2.5); Eosinophils # (Auto) 0.0 Thou/mm3 (0.0-0.5); Eosinophils % (Auto) 0 % (0-10); Hematocrit 42.4 % (41.0-53.0); Hemoglobin 14.6 g/dL (13.5-16.0); Immature Granulocytes Auto 0.10 Thou/mm3 (0.00-0.00); Lymphocytes # (Auto) 1.2 Thou/mm3 (1.0-4.8); Lymphocytes % (Auto) 6 % (10-50); Mean Corpuscular HGB Conc 34.4 g/dl (31.0-37.0); Mean Corpuscular Hemoglobin 29.8 pg (25.0-35.0); Mean Corpuscular Volume 87 fL (80-100); Monocytes # (Auto) 0.9 Thou/mm3 (0.0-0.8); Monocytes % (Auto) 4 % (0-12); Neutrophils # (Auto) 18.0 Thou/mm3 (1.8-7.7); Neutrophils % (Auto) 89 % (37-80); Nucleated Red Blood Cell # 0.00 Thou/mm3 (0.00-0.00); Nucleated Red Blood Cell % 0 /100 WBC (0); Platelet Count 308 Thou/mm3 (140-440); RDW Standard Deviation 40.5 fL (35.1-43.9); Red Blood Count 4.90 Miln/mm3 (4.50-5.90); White Blood Count 20.2 Thou/mm3 (3.8-10.6)
[2024-09-26 05:54] LABS: Alanine Aminotransferase 96 U/L (10-49); Albumin, Serum 3.8 gm/dL (3.5-5.0); Albumin/Globulin Ratio 1.7 (1.2-2.2); Alkaline Phosphatase 96 U/L (46-116); Anion Gap 6 (7-16); Aspartate Amino Transferase 49 U/L (0-34); BUN/Creatinine Ratio 14 Ratio (12-20); Bilirubin,Total 0.3 mg/dL (0.3-1.2); Blood Urea Nitrogen 19 mg/dL (9-23); Calcium 8.5 mg/dL (8.3-10.6); Calcium (Corrected) 8.7 mg/dL (8.5-10.1); Carbon Dioxide 29.3 mMol/L (20.0-31.0); Chloride 105 mMol/L (98-107); Creatinine (Component) 1.4 mg/dL (0.6-1.3); Estimated Creatinine Clearance 72.9 mL/min (>60); Globulin 2.3 gm/dL (2.3-3.5); Glucose 154 mg/dL (74-106); Magnesium 1.8 mg/dL (1.6-2.6); Osmolality,Calculated 284 (275-295); Phosphorous 2.6 mg/dL (2.4-5.1); Potassium 3.8 mMol/L (3.4-5.1); Sodium 140 mMol/L (136-145); Total Protein 6.1 gm/dL (5.7-8.2); eGFR > 60 See Note
[2024-09-26] MEDS: TAMSULOSIN HCL 0.4 MG CAPSULE PO (08:10)
[2024-09-26 08:58] LABS: C-Reactive Protein < 0.5 mg/dL (0.0-0.9); Procalcitonin < 0.04 ng/ml (0.0-0.49); Sed Rate (ESR) 11 mm/hr (0-15)
[2024-09-26] MEDS: LACTULOSE SYRUP 20 GM/30 ML UDC PO (15:29)
[2024-09-26] MEDS: PANTOPRAZOLE 20 MG TABLET PO (15:29)
--- NOTE | 2024-09-26 17:07 | ESPR_ITS ---
<Statement entered by Lanie Tolbert MD - 09/28/24 12:41> I reviewed above note and agree with findings and plans. I have also personally examined the patient with medicine team and went over assessment and plan with medical team including internet e commerce specialist and resident physician. <Statement entered by Joe Gallego MD - 09/26/24 18:13> Patient seen and examined at bedside. I discussed and supervised with the internet e commerce specialist physician who took care of this patient. I personally saw and examined the patient. I agree with most of the assessment and plan. Patient unable to have severely calcified stent removed via cystoscopy, third stent placed. Will likely require outpatient IR intervention, possibly at tertiary center. Will continue to observe patient per urology recs. Plan to DC Trujlilo and perform voiding trial today. Follow up on urine culture. Plan of care discussed with attending Dr. Tolbert. Joe Gallego MD PGY-2 Documentation for date of: 09/26/24 Subjective Subjective Interval history: Patient seen this morning, states he is feeling well with no complaints. Denies fever, chills, nausea, vomiting, pain, or dysuria. Pain well controlled with current regimen. Trujillo catheter is scheduled to be removed today, and voiding trial will be attempted. No overnight events reported. Exam Vital Signs Temp Pulse Resp BP Pulse Ox O2 Del Method O2 Flow Rate 97.4 F 76 18 149/99 H 98 Room Air 6 09/26/24 16:00 09/26/24 16:48 09/26/24 16:48 09/26/24 16:00 09/26/24 16:00 09/26/24 16:00 09/25/24 12:25 Narrative Exam General: Awake, alert, no acute distress CV: RRR, no murmurs Resp: CTAB, non-labored GI: Soft, NT/ND : Trujillo in place, clear tubing Neuro: A&O x3, no focal deficits Skin: Warm, dry, no rashes Extremities: No edema Objective Labs 09/26/24 04:50 09/26/24 04:50 Labs: Laboratory Results - last 24 hr 09/26/24 04:50 WBC 20.2 H D RBC 4.90 Hgb 14.6 Hct 42.4 MCV 87 MCH 29.8 MCHC 34.4 RDW Std Deviation 40.5 Plt Count 308 D Neut % (Auto) 89 H Lymph % (Auto) 6 L Dauphin % (Auto) 4 Eos % (Auto) 0 Baso % (Auto) 0 Neut # (Auto) 18.0 H Lymph # (Auto) 1.2 Dauphin # (Auto) 0.9 H Eos # (Auto) 0.0 Baso # (Auto) 0.0 Immature Gran # (Auto) 0.10 H Absolute Nucleated RBC 0.00 Immature Gran % 1 H Nucleated RBC % 0 ESR 11 Sodium 140 Potassium 3.8 Chloride 105 Carbon Dioxide 29.3 Anion Gap 6 L BUN 19 Creatinine 1.4 H Estim Creat Clear Calc 72.9 eGFR > 60 BUN/Creatinine Ratio 14 Glucose 154 H D Calculated Osmolality 284 Calcium 8.5 Corrected Calcium 8.7 Phosphorus 2.6 Magnesium 1.8 Total Bilirubin 0.3 AST 49 H ALT 96 H Alkaline Phosphatase 96 C-Reactive Prot, Quant < 0.5 Total Protein 6.1 Albumin 3.8 Globulin 2.3 Albumin/Globulin Ratio 1.7 Procalcitonin < 0.04 Quality Measures Quality Measures VTE prophylaxis Assessment & Plan Assessment Current Active Medications: Generic Name Dose Route Start Last Admin Trade Name Freq PRN Reason Stop Dose Admin Acetaminophen 650 mg 09/24/24 21:25 Acetaminophen 325 Mg Tablet PO 10/24/24 21:24 Q6H PRN PAIN SCALE 1-3 (mild Hydromorphone HCl 1 mg 09/25/24 16:47 09/26/24 10:17 Hydromorphone Inj 2 Mg/Ml Vial IVP 09/30/24 16:45 1 mg Q4HR PRN Administration PAIN SCALE 4-10(Mod-Sev Protocol Lactated Ringer's 1,000 mls @ 75 mls/hr 09/24/24 21:30 09/26/24 04:34 Lactated Ringers IV 10/24/24 21:29 75 mls/hr .[id number] ANIKET Administration Ceftriaxone Sodium/Dextrose 1 gm in 50 mls @ 100 mls/hr 09/25/24 21:00 09/25/24 21:04 Rocephin/D5w 1gm Iv Premix IV 10/02/24 20:59 100 mls/hr HS ANIKET Administration Ondansetron HCl 4 mg 09/24/24 21:25 09/25/24 14:01 Ondansetron Inj 2 Mg/Ml Inj 2 Ml IVP 10/24/24 21:24 4 mg Q6H PRN Administration NAUSEA OR VOMITING Protocol Sennosides 1 tab 09/24/24 21:25 09/25/24 21:04 Senna Tablet PO 10/24/24 21:24 1 tab QDAY PRN Administration constipation Protocol Tamsulosin HCl 0.4 mg 09/25/24 09:00 09/26/24 08:10 Tamsulosin Hcl 0.4 Mg Capsule PO 10/25/24 08:59 0.4 mg QDAY ANIKET Administration Tramadol HCl 50 mg 09/24/24 21:32 09/24/24 23:20 Tramadol Hcl 50 Mg Tablet PO 09/29/24 21:31 50 mg Q6HR PRN Administration PAIN SCALE 4-10(Mod-Sev Plan 49-year-old male with PMH of nephrolithiasis and chronic indwelling calcified ureteral stent, admitted for complicated UTI and CHICHI, now s/p retrograde pyelogram, laser stone fragmentation, and stent exchange on 09/25; currently clinically stable with leukocytosis likely reactive post-op, undergoing Trujillo removal and voiding trial today. #Complicated UTI (stable on treatment) UTI in the setting of indwelling ureteral stent and recent manipulation; patient is clinically asymptomatic on ceftriaxone. UA abnormal; UCx pending Plan: * Continue ceftriaxone 1g IV daily (09/25- ) * Monitor culture results * Plan to switch to oral antibiotics once appropriate * Monitor for signs of systemic infection #CHICHI (improving post-procedurally) Creatinine 1.4 (baseline 1.3); stable and trending toward baseline. Plan: * Continue IV fluids @ 75 mL/hr * Monitor daily renal panel * Strict I&O #Retained calcified left ureteral stent (unable to fully remove intra-op) Intra-op findings of fully calcified and embedded stent with proximal obstruction; only partial distal clearance achieved. Plan: * Will require outpatient follow-up with urology at a tertiary care center * Ensure PCP is aware and facilitates urology referral for definitive removal * Reinforce need for close follow-up with patient and family on discharge #Leukocytosis with neutrophilia (likely reactive post-op) WBC 20.2, neutrophils 18.0; no fever, chills, or hemodynamic instability; CRP, ESR, and procalcitonin all negative Plan: * Continue antibiotics while cultures pending * Monitor clinical status and WBC trend * No escalation unless symptoms develop #Post-op stent exchange with laser lithotripsy (09/25/24) Underwent cystoscopy, retrograde pyelogram, partial removal of calcified stent, and placement of new ureteral stent; bladder stones fragmented. Plan: * Continue observation inpatient Until Monday per urology * Monitor for hematuria, infection * Reinsert Trujillo if voiding trial fails * Pain controlled with current regimen #Trujillo catheter (to remove today with void trial) Patient clinically stable, pain-free Plan: * Remove Trujillo today * Trial of void * Monitor post-void residual * Reinsert Trujillo only if retention occurs #HTN, ADHD (chronic, stable) Plan: * Continue home lisinopril and Adderall * Monitor BP Health Maintenance: Disposition: Inpatient, stable, pending voiding trial Feeding: Regular diet DVT prophylaxis: SCDs GI prophylaxis: protonix Code status: Full Code
[2024-09-26] MEDS: cefTRIAXone/D5w 1gm IV premix 1 GM/50 ML BAG IV (20:01)
[2024-09-27] VITALS: BP 142/98; PULSE 85; RESP 18; TEMP 36.1; O2SAT 98
[2024-09-27] MEDS: HYDROmorphone INJ 2 MG/ML VIAL 1 MG IVP ×2 (00:56→08:58)
[2024-09-27 02:51] VITALS: PULSE 79; RESP 18; RESP 98
[2024-09-27 04:00] VITALS: BP 135/94; PULSE 66; RESP 19; TEMP 36; O2SAT 97
[2024-09-27 06:26] LABS: Basophils # (Auto) 0.1 Thou/mm3 (0.0-0.2); Basophils % (Auto) 0 % (0-2.5); Eosinophils # (Auto) 0.2 Thou/mm3 (0.0-0.5); Eosinophils % (Auto) 1 % (0-10); Hematocrit 43.0 % (41.0-53.0); Hemoglobin 14.2 g/dL (13.5-16.0); Immature Granulocytes Auto 0.05 Thou/mm3 (0.00-0.00); Lymphocytes # (Auto) 2.9 Thou/mm3 (1.0-4.8); Lymphocytes % (Auto) 18 % (10-50); Mean Corpuscular HGB Conc 33.0 g/dl (31.0-37.0); Mean Corpuscular Hemoglobin 29.8 pg (25.0-35.0); Mean Corpuscular Volume 90 fL (80-100); Monocytes # (Auto) 1.3 Thou/mm3 (0.0-0.8); Monocytes % (Auto) 8 % (0-12); Neutrophils # (Auto) 11.7 Thou/mm3 (1.8-7.7); Neutrophils % (Auto) 73 % (37-80); Nucleated Red Blood Cell # 0.00 Thou/mm3 (0.00-0.00); Nucleated Red Blood Cell % 0 /100 WBC (0); Platelet Count 252 Thou/mm3 (140-440); RDW Standard Deviation 43.8 fL (35.1-43.9); Red Blood Count 4.76 Miln/mm3 (4.50-5.90); White Blood Count 16.1 Thou/mm3 (3.8-10.6)
[2024-09-27 06:42] LABS: Alanine Aminotransferase 62 U/L (10-49); Albumin, Serum 3.8 gm/dL (3.5-5.0); Albumin/Globulin Ratio 1.7 (1.2-2.2); Alkaline Phosphatase 103 U/L (46-116); Anion Gap 8 (7-16); Aspartate Amino Transferase 24 U/L (0-34); BUN/Creatinine Ratio 13 Ratio (12-20); Bilirubin,Total 0.2 mg/dL (0.3-1.2); Blood Urea Nitrogen 15 mg/dL (9-23); Calcium 8.3 mg/dL (8.3-10.6); Calcium (Corrected) 8.5 mg/dL (8.5-10.1); Carbon Dioxide 30.9 mMol/L (20.0-31.0); Chloride 106 mMol/L (98-107); Creatinine (Component) 1.2 mg/dL (0.6-1.3); Estimated Creatinine Clearance 85.1 mL/min (>60); Globulin 2.2 gm/dL (2.3-3.5); Glucose 112 mg/dL (74-106); Magnesium 2.0 mg/dL (1.6-2.6); Osmolality,Calculated 290 (275-295); Phosphorous 2.1 mg/dL (2.4-5.1); Potassium 3.9 mMol/L (3.4-5.1); Sodium 145 mMol/L (136-145); Total Protein 6.0 gm/dL (5.7-8.2); eGFR > 60 See Note
[2024-09-27 07:39] VITALS: PULSE 68; RESP 18; RESP 97
[2024-09-27 08:00] VITALS: BP 143/97; PULSE 77; RESP 17; TEMP 36.2; O2SAT 98
[2024-09-27] MEDS: TAMSULOSIN HCL 0.4 MG CAPSULE PO (08:58)
[2024-09-27 12:00] VITALS: BP 135/89; PULSE 71; RESP 18; TEMP 36.2; O2SAT 97
--- NOTE | 2024-09-27 12:21 | PC.NURSE ---
Spoke with Dr. Mark Nayak at 1220 and he medically cleared patient for discharge.
--- NOTE | 2024-09-27 12:35 | PC.NURSE ---
PT IS CLEAR TO DC. PENDING FAMILY RIDE DIRECTOR OF SCIENTIFIC RESEARCH
[2024-09-27] MEDS: LACTULOSE SYRUP 20 GM/30 ML UDC 30 GM PO (12:48)
--- NOTE | 2024-09-27 15:31 | ESDS_ITS ---
<Statement entered by Lanie Tolbert MD - 09/30/24 16:11> I reviewed above note and agree with findings and plans. I have also personally examined the patient with medicine team and went over assessment and plan with medical team including financial services internship and resident physician. <Statement entered by Tyler Nayak MD - 09/27/24 18:29> Patient was examined and case was reviewed with team including attending physician. Note reviewed, I agree with most of its contents and agree with the patient's care. Tyler Nayak MD PGY-2 Planned Discharge Date 09/27/24 DS: Providers Provider Date of admission: 09/26/24 08:16 Primary care physician: Renetta Redd PA-C Admitting Provider: Willis Munson MD Attending Provider on Admission: Lanie Tolbert MD Consults: 09/24/24 20:42 Consult to Urology Routine Comment: Ureteral stricture; removal of stent Consulting Provider: Dixon Thao Attending Provider on DC: Lanie Tolbert MD Discharging Provider: Bridgette Cho DO DS: Diagnosis Problem List Completed Was Problem List Reviewed/Reconciled?: Yes Hospital Course Hospital Course Hospital course: Mr. Ace Figueroa is a 49-year-old male with a history of nephrolithiasis, chronic left ureteral stent (placed in 2021), and recurrent UTIs who presented with left-sided flank pain and concern for stent/catheter malfunction. He was found to have a UTI (UA with pyuria, hematuria, and positive LE) and mild CHICHI (creatinine 1.6 from baseline 1.3). CT abdomen/pelvis showed appropriate placement of his ureteral stent and a 6 mm stone adjacent to the stent. He was admitted for management of a complicated UTI and post-obstructive CHICHI, and started on ceftriaxone 1g IV daily and IV fluids. He subsequently underwent urologic intervention on 09/25, including cystoscopy, retrograde pyelogram, partial removal of calcified ureteral stent, bladder stone laser lithotripsy, and placement of a new ureteral stent. A Trujillo catheter was placed intraoperatively. Intraoperative findings revealed a retained, heavily calcified stent embedded in the proximal ureter that could not be safely removed in full. The plan is for outpatient referral to a tertiary urology center for definitive management. Post-operatively, the patient remained afebrile and hemodynamically stable. His creatinine improved to 1.4 and pain was controlled with oral medications. He developed post-op leukocytosis (WBC 20.2, neutrophils 18.0), but without fever, tachycardia, or symptoms. Infectious workup including CRP, ESR, and procalci tonin were negative, and leukocytosis was interpreted as reactive to surgical stress. Urine culture was sent and pending at time of discharge. On 09/26, Trujillo was successfully removed and he passed a voiding trial without difficulty. Patient was deemed medically stable for discharge. Diagnosis: #Complicated urinary tract infection #Acute kidney injury, likely postrenal #Retained calcified left ureteral stent #Status post cystoscopy with partial stent removal and new stent placement #Trujillo catheter dependency, post-op voiding trial #Hypertension #ADHD Discharge Plan: Follow up with PCP within 1 week of discharge and get referral for Urology Follow up with Dr. Thao the Urologist within 6 weeks of discharge You have been prescribed ciprofloxacin which is an antibiotic for 10 days, please take this medication as prescribed Should symptoms recur or worsen patient was instructed to return to the ED. Patient plan of care was discussed with the senior resident, Dr. Mark Nayak, and attending physician, Dr. Tolbert. Bridgette Cho, DO PGY-1 Time Spent with Patient Time attestation: Total time spent providing and/or coordinating discharge services: Time spent: Greater than 30 minutes Exam Vital Signs Temp Pulse Resp BP Pulse Ox O2 Del Method O2 Flow Rate 97.2 F 71 18 135/89 H 97 Room Air 6 09/27/24 12:09/27/24 12:09/27/24 12:09/27/24 12:09/27/24 12:09/27/24 12:09/25/24 12:25 Narrative Exam Physical Exam General: Well-appearing, no acute distress HEENT: Normocephalic, atraumatic, mucosa moist CV: RRR, no murmurs Resp: CTAB GI: Soft, NT/ND, no rebound or guarding : No suprapubic tenderness; voiding spontaneously Neuro: A&O x3, no focal deficits Skin: No rash, warm, dry Ext: No edema Discharge Plan Plan Patient Disposition: HOME (Self Care) Patient condition on transfer: Stable Care Plan Goals: Follow up with PCP within 1 week of discharge and get referall for Urology Follow up with Dr. Thao the Urologsit within 6 weeks of discharge You have been prescribed ciprofloxacin which is an antibiotic for 10 days, please take this medication as prescribed Should symptoms recur or worsen patient was instructed to return to the ED. Prescriptions/Referrals Prescriptions/Med Rec: New ciprofloxacin HCl 750 mg tablet 750 mg PO BID 10 Days Qty: 20 0RF tamsulosin [Flomax] 0.4 mg capsule 0.4 mg PO QDAY Qty: 30 0RF Continued lisinopril 10 mg tablet 10 mg PO DAILY dextroamphetamine-amphetamine [Adderall XR] 10 mg capsule,extended release 24hr 10 mg PO DAILY Patient Comments: Amphetamine salts er 10mg cap Referrals: Renetta Redd PA-C [Primary Care Provider] - Patient/Caregiver Discharge Instructions Education Materials: Urinary Tract Infections in Men, Understanding Urinary Tract ..., Cystoscopy, ED Kidney Stone w/ Colic Print Language: Portuguese Stand Alone Forms: Bel Award Info., Patient Portal Info Letter Discharge Order Discharge Orders: Discharge (Routine); Ordered 09/27/24 Ordered By: Tyler Nayak Quality Discharge Quality Measures none
== END 2024-09-27 13:37 | disposition home or self-care (01) | DRG 466 ==
LOC: SERX 20:11 → SERHOLD 21:41 → S3SX 22:22
PROVIDERS: Nurse Practitioner Primary Care; Urology; Admitting Provider Internal Medicine; Emergency Provider Emergency Medicine; PCP Physician Assistant; Visit Provider Internal Medicine
PROC: 0TJB8ZZ Inspection of Bladder, Via Natural or Artificial Opening Endoscopic (ICD-10-PCS; CPT 52000; principal; 2024-09-25 08:30)
DX: T83.122A Displacement of indwelling ureteral stent, initial encounter (principal); N20.2 Calculus of kidney with calculus of ureter; N21.0 Calculus in bladder; N13.6 Pyonephrosis; N17.9 Acute kidney failure, unspecified; F90.9 Attention-deficit hyperactivity disorder, unspecified type; I10 Essential (primary) hypertension; G89.29 Other chronic pain; Z87.440 Personal history of urinary (tract) infections; Z87.442 Personal history of urinary calculi; Y73.2 Prosthetic and other implants, materials and accessory gastroenterology and urology devices associated with adverse incidents
CPT/HCPCS: 36415; 74176; 74420; 80053; 81001; 83690; 83735; 84100; 84145; 85025; 85652; 86140; 87077; 87081; 87086; 87186; 96361; 96365; 96375; 99284; A4217; A4649; C1769; C1876; C1889; C1894; G0378; J0131; J0696; J1171; J1580; J1938; J2250; J2371; J2405; J2704; J3010; J3373; J3475; J3490; J7120; A9270

== ENCOUNTER → 2024-10-21 | Outpatient (CLI) | payer MEDICAID, SELFPAY ==
--- NOTE | 2024-10-21 15:06 | XR_ITS ---
Examination: Abdomen AP single view Technique: AP portable supine abdomen, single view Exam date and time: October 21, 2024, 1521 hours, comparison September 03, 2024 INDICATIONS: History kidney stones 3 years FINDINGS: 2 left ureteral stents, one of the stents upper ends projects at the level of L4 Distal left ureteral calculi, 8 mm, 4 mm No definite renal calculi IMPRESSION: Distal left ureteral calculi, 8 mm, 4 mm
== END | disposition home or self-care (01) ==
LOC: CDIM 14:58
PROVIDERS: PCP Physician Assistant; Referring Provider Surgery; Visit Provider Surgery
DX: N20.1 Calculus of ureter (principal)
CPT/HCPCS: 74018

== ENCOUNTER 2024-12-06 06:30 | Day surgery (SDC) | payer MEDICAID, SELFPAY ==
--- NOTE | 2024-12-04 06:31 | EKG_ITS ---
[facility] Test Date: 2024-12-04 Pat Name: ALBERTO LICNOA Department: Room: - Gender: Male [employer] Cook: JOHN : 1975 Requested By: Christian Scott Order Number: [id number] Reading MD: Christian Scott Measurements Intervals [place]ver Rate: 88 P: 61 NM: 175 QRS: 11 QRSD: 97 T: 61 QT: 352 QTc: 426 Interpretive Statements SINUS RHYTHM POSSIBLE LEFT ATRIAL ENLARGEMENT [-0.1mV P WAVE IN V1/V2] SEPTAL MYOCARDIAL INFARCTION , OF INDETERMINATE AGE [40+ ms Q WAVE IN V1/V2] No previous ECG available for comparison /store/S0/[id number]/ecg/[id number].pdf
[2024-12-04 09:13] VITALS: BMI 27.3
[2024-12-04 09:40] LABS: Collection Type, Urine Clean Catch
[2024-12-04 10:05] LABS: Basophils # (Auto) 0.1 Thou/mm3 (0.0-0.2); Basophils % (Auto) 1 % (0-2.5); Eosinophils # (Auto) 0.5 Thou/mm3 (0.0-0.5); Eosinophils % (Auto) 6 % (0-10); Hematocrit 45.7 % (41.0-53.0); Hemoglobin 15.2 g/dL (13.5-16.0); Immature Granulocytes Auto 0.02 Thou/mm3 (0.00-0.00); Lymphocytes # (Auto) 2.6 Thou/mm3 (1.0-4.8); Lymphocytes % (Auto) 31 % (10-50); Mean Corpuscular HGB Conc 33.3 g/dl (31.0-37.0); Mean Corpuscular Hemoglobin 29.6 pg (25.0-35.0); Mean Corpuscular Volume 89 fL (80-100); Monocytes # (Auto) 1.1 Thou/mm3 (0.0-0.8); Monocytes % (Auto) 13 % (0-12); Neutrophils # (Auto) 4.2 Thou/mm3 (1.8-7.7); Neutrophils % (Auto) 50 % (37-80); Nucleated Red Blood Cell # 0.00 Thou/mm3 (0.00-0.00); Nucleated Red Blood Cell % 0 /100 WBC (0); Platelet Count 290 Thou/mm3 (140-440); RDW Standard Deviation 43.9 fL (35.1-43.9); Red Blood Count 5.13 Miln/mm3 (4.50-5.90); White Blood Count 8.4 Thou/mm3 (3.8-10.6)
[2024-12-04 10:14] LABS: Bacteria,Urine Rare; Bilirubin,Urine Negative (Negative); Blood,Urine 3+ (Negative); Glucose, Urine 1+ (Negative); Ketones,Urine Negative (Negative); Leukocyte Esterase,Urine Positive (Negative); Nitrite,Urine Negative (Negative); PH,Urine 6.5 (5.0-7.0); Protein,Urine 1+ (Neg - Trace); RBC,Urine 1837 /hpf (0-3); Specific Gravity,Urine 1.019 (1.001-1.035); Squamous Epithelial Cell,Urine 2 /hpf (0-5); Urobilinogen,Urine Negative mg/dL (0.0-1.0); WBC,Urine 36 /hpf (0-5)
[2024-12-04 10:19] LABS: Alanine Aminotransferase 29 U/L (10-49); Albumin, Serum 4.7 gm/dL (3.5-5.0); Albumin/Globulin Ratio 2.0 (1.2-2.2); Alkaline Phosphatase 108 U/L (46-116); Anion Gap 8 (7-16); Aspartate Amino Transferase 23 U/L (0-34); BUN/Creatinine Ratio 13 Ratio (12-20); Bilirubin,Total 0.5 mg/dL (0.3-1.2); Blood Urea Nitrogen 19 mg/dL (9-23); Calcium 9.8 mg/dL (8.3-10.6); Calcium (Corrected) 9.8 mg/dL (8.5-10.1); Carbon Dioxide 31.6 mMol/L (20.0-31.0); Chloride 104 mMol/L (98-107); Creatinine (Component) 1.5 mg/dL (0.6-1.3); Estimated Creatinine Clearance 64.1 mL/min (>60); Globulin 2.4 gm/dL (2.3-3.5); Glucose 95 mg/dL (74-106); Osmolality,Calculated 289 (275-295); Potassium 3.9 mMol/L (3.4-5.1); Sodium 144 mMol/L (136-145); Total Protein 7.1 gm/dL (5.7-8.2); eGFR 57 See Note
[2024-12-04 11:10] LABS: Clarity,Urine Hazy (Clear/Hazy); Color,Urine Lt Yellow (Lt Yel-Yel)
--- NOTE | 2024-12-05 12:30 | ESHP_ITS ---
RE: ALBERTO LICONA : 1975 DATE OF ADMISSION: 12/05/2024 HISTORY OF PRESENT ILLNESS: A 49-year-old gentleman with left-sided flank pain. The patient was seen by Dr. Brooks and then Dr. Thao. The patient had a stent placed several years ago. The stent has been in and has formed stones around the stent and the bladder and the ureter. Dr. Thao tried to do surgery and he took care of the bladder stones and he tried to put another stent on the left side. Now, the patient is seen because of stuck left ureteral stent with a calculi around it. He is now scheduled to have extracorporeal shock wave lithotripsy for left renal and left ureteral calculi. Planned procedure, risks and complications have been discussed with the patient. The patient has understood them and agreed to proceed. PAST SURGICAL HISTORY: He has two ureteral stents on the left side now, previous surgery, cholecystectomy, extracorporeal shock wave lithotripsy in the past, cystoscopy, bladder stone surgery by Dr. Thao recently. SOCIAL HISTORY: The patient has 2 children. ALLERGIES: NONE KNOWN. PAST MEDICAL HISTORY: He has a history of hypertension. HOME MEDICATIONS: He takes 1. Lisinopril. 2. Adderall. PHYSICAL EXAMINATION: HEENT: Normal. NECK: Supple. LUNGS: Clear. CARDIOVASCULAR: Heart sounds are normal. ABDOMEN: Soft without any organomegaly. No guarding. No rigidity. EXTREMITIES: Normal. IMPRESSION: Chronic indwelling left ureteral stent with multiple calculi around the ureter and the kidney. PLAN: Extracorporeal shock wave lithotripsy for the left ureter and left kidney. Planned procedure, risks, and complications have been discussed with the patient. The patient has understood them and agreed to proceed. DT: 11:53:19 TT: 12:15:00 Ref: [id number] - TID: [id number]
[2024-12-06] VITALS (11 sets, daily range): BP systolic 104–144; BP diastolic 70–99; PULSE 80–94; RESP 12–18; TEMP 36.1–36.6; O2SAT 95–100; BMI 26.9
--- NOTE | 2024-12-06 06:00 | XR_ITS ---
Examination: Abdomen AP single view Technique: AP portable supine abdomen, single view Exam date and time: December 06, 2024, 0731 hours, comparison October 21, 2024 INDICATIONS: Preop lithotripsy, left kidney stones 3 years FINDINGS: Left ureteral stent noted with apparent second stent coiled in the bladder Extensive calcifications adjacent to the upper and lower portion of the left ureteral stent IMPRESSION: Left ureteral stent demonstrates multiple calcifications adjacent to the stent
--- NOTE | 2024-12-06 07:44 | SUR.PREOP ---
Patient expressed gratitude for prayer before their procedure.
--- NOTE | 2024-12-06 10:12 | SUR.PHASEI ---
1012: pt received from OR via [facility]. received report from SIRIA Solis and Yonatan Lanza CRNA. pt arousable but drift back to sleep. no s/s of resp. distress or discomfort. no s/s of pain or discomfort. noted redness to left side of abdomen ( per OR Nurse where pad was place during procedure) . no bleeding or discoloration noted.
--- NOTE | 2024-12-06 10:40 | SUR.PHASEII ---
1040: Redness to left side of abdomen remains but fading.
--- NOTE | 2024-12-06 10:46 | SUR.PHASEII ---
1046: able to tolerated ice chips without any issues.
--- NOTE | 2024-12-06 11:26 | SUR.OPER ---
Power 8, 2000 shocks - renal pelvis Power 8, 1500 shocks - upper stent Power 9, 2000 shocks - distal ureter Total fluoroscopy time: 6 minutes 23 seconds
--- NOTE | 2024-12-06 11:40 | SUR.PHASEII ---
1140: informed pt that he ready for discharge and can change to his clothes. asked pt if need help to change, he stated, I am okay give me a minute. given pt a privacy and informed him if needed help just call copy writer, pt verbalies understanding.
--- NOTE | 2024-12-06 11:50 | SUR.PHASEII ---
1150: follow up with patient if change to his clothes already. he again verbalizes, Give me 5 minutes. Given pt privacy and informed pt if needed help called typewriter repairer's attention.
--- NOTE | 2024-12-06 11:55 | SUR.PHASEII ---
1155: Debra -girlfriend called and inform commercial underwriter that her son Alexys Bravo. Discharge instructions given via phone to Debra, all questions were answer.
--- NOTE | 2024-12-06 12:15 | SUR.PHASEII ---
1215: pt discharge to home via wheelchair. pt alert and oriented. no s/s of resp. distress or discomfort. denies any pain or discomfort. fading redness to left side of abdomen noted. all belongings brought given back to patient.
--- NOTE | 2024-12-06 16:54 | ESOP_ITS ---
RE: ALBERTO LICONA : 1975 DATE OF OPERATION: 12/06/2024 PREOPERATIVE DIAGNOSES: Left renal calculi, left ureteral calculi, left ureteral stent in the ureter for more than 3 years. Stuck left ureteral stent which was placed a few years ago by Dr. Brooks. The patient had another surgery with a cystoscopy, left retrograde pyelogram and left ureteral stone lithotripsy and a second left ureteral stent placed by Dr. Thao a few weeks ago. The patient is now scheduled to have extracorporeal shockwave lithotripsy for stones around the left kidney and left ureter where the stones are sticking to the left ureteral indwelling stent. PROCEDURE PERFORMED: Extracorporeal shockwave lithotripsy for the left kidney stones, left ureteral stones. ANESTHESIA: General by Mr. Yonatan CRNA. INDICATION: The patient is a 49-year-old gentleman who had a left ureteral stone and had a left ureteral stent inserted. Had a lithotripsy done by Dr. Brooks about 3 years ago. The stent has been in there all these years. The patient was seen then by Dr. Thao who tried breaking the stones through the ureteroscope but he was unable to break all the stones and he was unable to remove the left indwelling stuck ureteral stent. He placed another stent which was put up to mid ureter. The patient was then referred to me for extracorporeal shockwave lithotripsy for the left kidney and left ureteral stones. Planned procedure, risks, and complications have been discussed with the patient. The patient understood them and agreed to proceed. DESCRIPTION OF PROCEDURE: After the patient was brought to the operating table under adequate general anesthesia by Mr. Yonatan CRNA, he was placed on Dornier Delta III lithotripsy machine. 2500 shots were given to the left kidney around the stent breaking small stones around the ureteral stent and further shots were given around the left ureter from top to bottom. Totally 3500 shots were given to the left ureter. For the left kidney the number of shots were given was 2500. The patient tolerated the entire procedure well and left the room in good condition. DT: 14:03:16 TT: 16:53:00 Ref: [id number] - TID: [id number]
== END 2024-12-06 12:15 | disposition home or self-care (01) ==
PROVIDERS: Anesthesiology; PCP Physician Assistant; Referring Provider Surgery; Visit Provider Surgery
PROC: (CPT 50590; principal; 2024-12-06 08:30)
DX: N20.2 Calculus of kidney with calculus of ureter (principal); I10 Essential (primary) hypertension; Z79.899 Other long term (current) drug therapy; Z01.810 Encounter for preprocedural cardiovascular examination
CPT/HCPCS: 50590; 36415; 74018; 80053; 81001; 85025; 87086; 93005; J0131; J0694; J1171; J1938; J2250; J2704; J3010; J3490; J1596

== ENCOUNTER 2024-12-17 12:00 | Day surgery (SDC) | payer MEDICAID, SELFPAY ==
--- NOTE | 2024-12-12 14:49 | ESHP_ITS ---
RE: ALBERTO LICONA : 1975 DATE OF ADMISSION: 12/12/2024 HISTORY OF PRESENT ILLNESS: A 49-year-old gentleman with history of a left distal ureteral stone, which was seen by Dr. Brooks about 3 years ago and he put a stent and did a extracorporeal shock wave lithotripsy. Unfortunately, the stent was stayed in for 3 years and then a patient was seen by Dr. Thao who tried taking the stent out, but there were a lot of stones stuck to the stent to the ureter and he was unable to remove those stones. Ultimately, the patient has been seen and I did a extracorporeal shock wave lithotripsy for the left renal and ureteral stones. The patient is now scheduled to have cystoscopy and removal of two left ureteral stents. Planned procedure risks and complications have been discussed with the patient. The patient has understood them and agreed to proceed. PAST MEDICAL HISTORY: The patient does not have any history of diabetes. He has history of hypertension. MEDICATIONS: He takes lisinopril. ALLERGIES: NONE KNOWN. SOCIAL HISTORY: He has two children. PHYSICAL EXAMINATION: Clinical examination reveals HEENT: Normal. Neck: Supple. Lungs: Clear. Cardiovascular: Heart sounds are normal. Abdomen: Soft without any organomegaly. No guarding. No rigidity. Extremities: Normal. IMPRESSION: Left ureteral stone, status post extracorporeal shock wave lithotripsy for stuck left ureteral stent. PLAN: Cystoscopy and removal of two left ureteral stents. Planned procedure risks and complications have been discussed with the patient. The patient has understood them and agreed to proceed. DT: 14:15:02 TT: 14:48:00 Ref: [id number] - TID: [id number]
[2024-12-16 10:31] VITALS: BMI 25.8
[2024-12-16 11:59] LABS: Basophils # (Auto) 0.1 Thou/mm3 (0.0-0.2); Basophils % (Auto) 1 % (0-2.5); Eosinophils # (Auto) 0.5 Thou/mm3 (0.0-0.5); Eosinophils % (Auto) 5 % (0-10); Hematocrit 46.2 % (41.0-53.0); Hemoglobin 15.4 g/dL (13.5-16.0); Immature Granulocytes Auto 0.03 Thou/mm3 (0.00-0.00); Lymphocytes # (Auto) 2.8 Thou/mm3 (1.0-4.8); Lymphocytes % (Auto) 29 % (10-50); Mean Corpuscular HGB Conc 33.3 g/dl (31.0-37.0); Mean Corpuscular Hemoglobin 29.4 pg (25.0-35.0); Mean Corpuscular Volume 88 fL (80-100); Monocytes # (Auto) 1.0 Thou/mm3 (0.0-0.8); Monocytes % (Auto) 11 % (0-12); Neutrophils # (Auto) 5.2 Thou/mm3 (1.8-7.7); Neutrophils % (Auto) 54 % (37-80); Nucleated Red Blood Cell # 0.00 Thou/mm3 (0.00-0.00); Nucleated Red Blood Cell % 0 /100 WBC (0); Platelet Count 317 Thou/mm3 (140-440); RDW Standard Deviation 43.6 fL (35.1-43.9); Red Blood Count 5.23 Miln/mm3 (4.50-5.90); White Blood Count 9.6 Thou/mm3 (3.8-10.6)
[2024-12-16 12:09] LABS: Alanine Aminotransferase 26 U/L (10-49); Albumin, Serum 4.7 gm/dL (3.5-5.0); Albumin/Globulin Ratio 1.9 (1.2-2.2); Alkaline Phosphatase 95 U/L (46-116); Anion Gap 9 (7-16); Aspartate Amino Transferase 22 U/L (0-34); BUN/Creatinine Ratio 11 Ratio (12-20); Bilirubin,Total 0.7 mg/dL (0.3-1.2); Blood Urea Nitrogen 19 mg/dL (9-23); Calcium 9.2 mg/dL (8.3-10.6); Calcium (Corrected) 9.2 mg/dL (8.5-10.1); Carbon Dioxide 30.6 mMol/L (20.0-31.0); Chloride 103 mMol/L (98-107); Creatinine (Component) 1.8 mg/dL (0.6-1.3); Estimated Creatinine Clearance 56.7 mL/min (>60); Globulin 2.5 gm/dL (2.3-3.5); Glucose 107 mg/dL (74-106); Osmolality,Calculated 287 (275-295); Potassium 3.6 mMol/L (3.4-5.1); Sodium 143 mMol/L (136-145); Total Protein 7.2 gm/dL (5.7-8.2); eGFR 46 See Note
--- NOTE | 2024-12-16 15:42 | SUR.PREOP ---
Pt notified to come in at 1200 tomorrow.
[2024-12-17] VITALS (11 sets, daily range): BP systolic 119–152; BP diastolic 81–118; PULSE 67–94; RESP 12–19; TEMP 36.3–36.7; O2SAT 95–100; BMI 25.5
[2024-12-17] MEDS: RINGERS LACTATED 1000 ML 1,000 ML 20 ML IV (12:36)
--- NOTE | 2024-12-17 12:45 | XR_ITS ---
EXAMINATION: Retrograde pyelogram with without KUB, left Fluoroscopy AP abdomen 7 views Date and time: December 17, 2024, 1359 hours INDICATIONS: History left ureteral calculi left ureteral stent, cystogram today with removal ureteral stent TECHNIQUE AND FINDINGS: 7 spot fluoroscopic abdomen films Fluoroscopy 0.05 seconds radiation dose 1.71 mGy IMPRESSION: Retrograde Polygram as above
--- NOTE | 2024-12-17 13:21 | SUR.PHASEII ---
1321: Pt. wakes to name then drifts back to sleep, vitals stable, breathing unlabored, no complaint of pain or nausea, no dressing in place, no active bleed noted, report received from MD Sood and Agapito BEVERLY.
[2024-12-17] MEDS: fentaNYL CIT INJ 50 mCg/ML AMP 2ML IVP ×2 (13:33→13:38)
[2024-12-17] MEDS: ACETAMINOPHEN IVPB 1,000 MG/100 ML VIAL 250 MG IV (13:48)
[2024-12-17] MEDS: KETOROLAC INJ 30 MG/ML VIAL 15 MG IVP (14:14)
--- NOTE | 2024-12-17 15:14 | SUR.PHASEII ---
1514: Pt. AAO4, vitals stable, breathing unlabored, no complaint of pain or nausea, no dressing in place, pt. able to void hematuria, pt. tolerated sips of water well, pt. ambulated to wheelchair with steady gait and no assist, no complications. Gave discharge instructions to the pt. and his ride, both verbalized understanding and had no further questions. Pt. left with all personal belongings.
--- NOTE | 2024-12-17 15:29 | SUR.PHASEII ---
1514: Kept pt. for long time due to his ride being unavailable until 1500.
--- NOTE | 2024-12-23 08:58 | ESOP_ITS ---
RE: ALBERTO LICONA : 1975 DATE OF OPERATION: 12/17/2024 PREOPERATIVE DIAGNOSES: 1. History of a left distal ureteral stone, chronic indwelling ureteral stent on the left side for about 3 years, history of left ureteroscopy and laser lithotripsy for the left ureteral stones with insertion of a second ureteral stent done by Dr. Thao. 2. Recent extracorporeal shockwave lithotripsy for the left renal, left ureteral stones. The patient is now for cystoscopy and left ureteral stent removal. POSTOPERATIVE DIAGNOSIS: OPERATION: At this time, cystoscopy, removal of one ureteral stent, which is an original stent going all the way up to the left kidney, and removal of a few stones from the bladder and ureter. ANESTHESIA: Monitored anesthesia by Dr. Sood. INDICATION: The patient is a 49-year-old gentleman with history of left distal ureteral stone. He had a left ureteral stent placed by Dr. Brooks about 3 years ago. The stent was left in all these years and the patient has developed several stones around his left retained ureteral stent around the left kidney and the left ureter, proximal mid and distal ureter. The patient saw Dr. Thao. He did cystoscopy and laser fragmentation of some of the ureteral stent in the lower ureter, but he was unable to remove the stent and he put a second ureteral stent. Then, the patient was referred to me and I tried doing a lithotripsy for the left renal, left ureteral, upper mid and distal ureteral stones. Now, the patient is brought in for cystoscopy and removal of two ureteral stents. Planned procedure, risks, and complications have been discussed with the patient. The patient has understood them and agreed to proceed. DESCRIPTION OF PROCEDURE: After the patient was brought to the operating table under adequate monitored anesthesia and dorsal lithotomy position, parts were prepped and draped in the usual fashion. Cystoscopy was then carried out, which revealed adequate urethral meatus, normal-appearing urethra. Prostatic urethra is mildly enlarged. Scope was introduced into the bladder. There are two ureteral stents, which were seen. One ureteral stent was grasped and was gently pulled out. This is the stent which goes all the way up to the left kidney. The second stent, which is a shorter stent which goes up to the left mid ureter. It was difficult to pull it out. We did a fluoroscopy and it revealed that there are a lot of stones approximately 2 cm around the ureteral stent into the lower part of the ureter. We tried for some time, but the second stent will not come out. We decided to stop and there were some stones in the bladder, which were evacuated out with the [employer] evacuator. Scope was removed. The patient still has a second stent, which was put in later on which is all calcified. The patient tolerated the entire procedure well and left the operating room in a good condition. PLAN: The patient either would require a second extracorporeal shockwave lithotripsy or may require a cystoscopy, left ureteroscopy, and laser fragmentation of the stones. DT: 13:41:34 TT: 14:37:00 Ref: [id number] - TID: [id number]
== END 2024-12-17 15:14 | disposition home or self-care (01) ==
PROVIDERS: Anesthesiology; PCP Physician Assistant; Referring Provider Surgery; Visit Provider Surgery
PROC: 0TP98DZ Removal of Intraluminal Device from Ureter, Via Natural or Artificial Opening Endoscopic (ICD-10-PCS; CPT 52310; principal; 2024-12-17 13:45)
DX: N20.2 Calculus of kidney with calculus of ureter (principal); N21.0 Calculus in bladder
CPT/HCPCS: 52310; 36415; 76000; 80053; 82365; 85025; 87086; A4217; A4649; J0131; J0690; J0694; J1885; J2250; J2704; J3010; J7120